=== PATIENT | female | born 1940 | race African-American/Black ===

== ENCOUNTER 2017-06-25 09:06 | Inpatient (IN) | payer OTHER ==
[2017-06-25] VITALS (12 sets, daily range): BP systolic 92–174; BP diastolic 46–94
[~2017-06-25] VITALS: Ht 165.1 cm; Wt 71.7 kg
[~2017-06-25 09:06] MED LIST: AMLO5TAB2 PO; ASPI81TA50 PO; GABA800T2 PO; HYDR-2762 PO; HYDR453.4 TP; METO25TA2 PO; PANT40TA5 PO; POLY17PO5 PO; SENN8.6C2 PO; SUCR1TAB35 PO; VIT1CAPS2 PO
--- NOTE | 2017-06-25 09:20 | EKG ---
[address] [address] Test Date: 2017-06-25 Test Time: 09:15:59 Pat Name: KASSANDRA ORDONEZ Department: Room: Gender: F Labeler: : 1940 Requested By: ORESTES REED Order Number: [id number] Reading MD: Shahzad Moreno MD Measurements Intervals [place] Rate: 93 P: 66 WY: 138 QRS: 53 QRSD: 120 T: 37 QT: 390 QTc: 488 Interpretive Statements SINUS RHYTHM Electronically Signed On 06-29-2017 16:33:13 CDT by Shahzad Moreno MD
--- NOTE | 2017-06-25 09:46 | PHYS DOC ---
Past History Past Medical History: Fibromyalgia, GERD, Hypertension Past Surgical History: Hysterectomy Alcohol Use: None Drug Use: None Adult General Chief Complaint Chief Complaint: NEURO SYMPTOMS/DEFICITS HPI HPI Patient is a 76 year old female who presents to the emergency department for evaluation of altered mental status. Family reports that approximately 8:15 AM the patient was last seen at her normal baseline. Patient's daughter states that at 8:30 AM she found the patient with contracted extremities and leaning toward her left side with what appeared to be her eyes rolling in the back of her head. Daughter states shortly after this episode the patient became very combative towards family. She called EMS who brought the patient to the emergency department for further evaluation. The patient has slurred speech and slow verbal responses but is following commands currently. Review of Systems Review of Systems Constitutional: Denies fever or chills [] Eyes: Denies change in visual acuity, redness, or eye pain [] HENT: Denies nasal congestion or sore throat [] Respiratory: Denies cough or shortness of breath [] Cardiovascular: Denies chest pain or edema [] GI: Denies abdominal pain, nausea, vomiting, bloody stools or diarrhea [] : Denies dysuria or hematuria [] Musculoskeletal: Denies back pain or joint pain [] Integument: Denies rash or skin lesions [] Neurologic: Right-sided weakness, facial droop, slurring speech[] All other systems were reviewed and found to be within normal limits, except as documented in this note. Allergies Allergies Allergies Coded Allergies Type Severity Reaction Last Updated Verified Iodine and Iodide Containing Produc Allergy Severe 10/30/14 Yes Penicillins Allergy Severe Hives 10/30/14 Yes lisinopril Allergy Severe Swelling 10/30/14 Yes azithromycin Allergy Intermediate 10/30/14 Yes meperidine Allergy Intermediate 10/30/14 Yes metoclopramide Allergy Intermediate 10/30/14 Yes nitrofurantoin Allergy Intermediate 10/30/14 Yes Physical Exam Physical Exam Constitutional: Alert, afebrile, follows commands, vital signs stable. [] HENT: Normocephalic, atraumatic, bilateral external ears normal, oropharynx moist, no oral exudates, nose normal. [] Eyes: PERRLA, EOMI, conjunctiva normal, no discharge. [] Neck: Normal range of motion, no tenderness, supple, no stridor. [] Cardiovascular:Heart rate regular rhythm, no murmur [] Lungs & Thorax: Bilateral breath sounds clear to auscultation [] Abdomen: Bowel sounds normal, soft, no tenderness, no masses, no pulsatile masses. [] Skin: Warm, dry, no erythema, no rash. [] Back: No tenderness, no CVA tenderness. [] Extremities: No tenderness, no cyanosis, no clubbing, ROM intact, no edema. [] Neurologic: Alert and oriented X 3, right-sided facial droop that is forehead sparing, speech slurred, biofuels production associate strength equal bilaterally, proximal upper extremity strength 5 out of 5 bilaterally, right lower extremity 4.5 out of 5 muscle strength, left lower extremity 5 out of 5 muscle strength, no sensory deficits, no ataxia. [] Current Patient Data Vital Signs Vital Signs Date Time Temp Pulse Resp B/P (MAP) Pulse Ox O2 Delivery O2 Flow Rate FiO2 06/25/17 09:07 98.2 93 32 90 Room Air Lab Results Laboratory Tests Test 06/25/17 09:22 06/25/17 10:02 06/25/17 10:17 White Blood Count 5.1 x10^3/uL Red Blood Count 4.59 x10^6/uL Hemoglobin 13.5 g/dL Hematocrit 39.8 % Mean Corpuscular Volume 87 fL Mean Corpuscular Hemoglobin 29 pg Mean Corpuscular Hemoglobin Concent 34 g/dL Red Cell Distribution Width 13.4 % Platelet Count 248 x10^3/uL Neutrophils (%) (Auto) 65 % Lymphocytes (%) (Auto) 21 % Monocytes (%) (Auto) 9 % Eosinophils (%) (Auto) 4 % Basophils (%) (Auto) 1 % Neutrophils # (Auto) 3.3 x10^3uL Lymphocytes # (Auto) 1.0 x10^3/uL Monocytes # (Auto) 0.5 x10^3/uL Eosinophils # (Auto) 0.2 x10^3/uL Basophils # (Auto) 0.1 x10^3/uL Prothrombin Time 10.6 SEC Prothromb Time International Ratio 1.0 Activated Partial Thromboplast Time 27 SEC Sodium Level 141 mmol/L Potassium Level 3.8 mmol/L Chloride Level 101 mmol/L Carbon Dioxide Level 26 mmol/L Anion Gap 14 Blood Urea Nitrogen 10 mg/dL Creatinine 0.9 mg/dL Estimated GFR (Cockcroft-Gault) 73.3 BUN/Creatinine Ratio 11 Glucose Level 101 mg/dL Calcium Level 9.4 mg/dL Magnesium Level 1.8 mg/dL Total Bilirubin 0.2 mg/dL Aspartate Amino Transf (AST/SGOT) 18 U/L Alanine Aminotransferase (ALT/SGPT) 15 U/L Alkaline Phosphatase 103 U/L Ammonia 13 mcmol/L Creatine Kinase 79 U/L Creatine Kinase MB (Mass) 0.5 ng/mL Creatine Kinase MB Relative Index 0.6 % Troponin I Quantitative < 0.017 ng/mL KQ-Vlq-M-Type Natriuretic Peptide 118 pg/mL Total Protein 7.3 g/dL Albumin 3.6 g/dL Albumin/Globulin Ratio 1.0 Lactic Acid Level 1.4 mmol/L Urine Collection Type U cath Urine Color Straw Urine Clarity Clear Urine pH 7.0 Urine Specific [place] 1.020 Urine Protein 30 mg/dl Urine Glucose (UA) Neg mg/dL Urine Ketones (Stick) Neg mg/dL Urine Blood Small Urine Nitrite Neg Urine Bilirubin Neg Urine Urobilinogen Dipstick 0.2 mg/dL Urine Leukocyte Esterase Neg Urine RBC 1-2 /HPF Urine WBC 0 /HPF Urine Squamous Epithelial Cells Occ /LPF Urine Transitional Epithelial Cells Occ /LPF Urine Bacteria 0 /HPF Urine Opiates Screen Neg Urine Methadone Screen Neg Urine Barbiturates Neg Urine Phencyclidine Screen Neg Urine Amphetamine/Methamphetamine Neg Urine Benzodiazepines Screen Neg Urine Cocaine Screen Neg Urine Cannabinoids Screen Pos Urine Ethyl Alcohol Neg Current Medications Medications (Trade) Dose Ordered Sig/Karolyn Route PRN Reason Start Time Stop Time Status Last Admin Dose Admin Aspirin (Joe Aspirin) 325 mg 1X ONCE PO 06/25/17 10:30 06/25/17 10:31 DC 06/25/17 10:33 Sodium Chloride 1,000 ml @ 125 mls/hr Q8H IV 06/25/17 10:38 06/26/17 10:37 EKG EKG Interpreted by me: Heart rate 93, sinus rhythm, incomplete right bundle branch block, no acute ST/T-wave abnormalities present[] Radiology/Procedures Radiology/Procedures [address] [address] IMAGING REPORT Signed PATIENT: KASSANDRA ORDONEZ ACCOUNT: [id number] : 1940 LOCATION: ER AGE: 76 SEX: F EXAM STATUS: REG ER ORD. PHYSICIAN: ORESTES REED MD REASON: altered mental status PROCEDURE: CT HEAD WO CONTRAST CT HEAD WO CONTRAST History: CODE STROKE, altered mental status Comparison: May 22, 2015 Technique: Noncontrast CT imaging was performed of the head. Exposure: One or more of the following individualized dose reduction techniques were utilized for this examination: 1. Automated exposure control 2. Adjustment of the mA and/or kV according to patient size 3. Use of iterative reconstruction technique. Findings: No acute intracranial hemorrhage is identified. There is a subtle focus of relative lower density left abraham axial image 11 not well-visualized on the previous exam. There are some other mild ill-defined low-density of the supratentorial parenchyma. Ventricular size is within normal limits. There is no intra-axial mass effect or midline shift. There is mild right frontal scalp soft tissue swelling/small hematoma. No acute calvarial abnormality is identified. Mastoid air cells are aerated. Impression: 1. No acute intracranial hemorrhage is identified. There is a small focus of relative lower density of the left abraham, cannot exclude more recent subacute ischemia. If there is concern for evolving or acute ischemia, followup CT or MRI could be beneficial. FOR INTERNAL CODING PURPOSES Critical result: Findings discussed with ORESTES REED at 06/25/2017 9:45 AM. RESULT CODE: (C) [] Course & Med Decision Making Course & Med Decision Making Pertinent Labs and Imaging studies reviewed. (See chart for details) The patient was activated as a code stroke at 0920. I initially called Dr. Smiley, patient's primary doctor, to confirm that to his knowledge the patient has had no prior issues with facial droop. I spoke with Dr. Monae at 0930. Initial NIH score was 6. Patient has noted history of GI bleeding and had a prior GI bleed approximately one year ago per family. Patient also has findings in the left abraham on CT signaling possible subacute infarct. Given these findings, Dr. Monae did not feel patient was a candidate for TPA therapy. I spoke with the family regarding risks and benefits of TPA therapy and they also agreed to withhold use of TPA in this patient due to potential for bleeding risk. Both Dr. Monae and Dr. Smiley feel that the patient is appropriate for admission here at [facility]. I spoke with the patient and the patient's family regarding this and they agreed to have patient stay for further evaluation and treatment. Nursing NIH score was 8 as patient now having symmetric weakness in bilateral upper and lower extremities. Focal neuro weakness may be a sign of Ba's paralysis secondary to seizure episode. Dr. Monae recommended the patient be started on aspirin at this time though he is aware of the patient's prior history of GI bleed. This was started in the emergency department. Patient was admitted for further care. Critical care time excluding procedures: 35 minutes. Dragon Disclaimer Dragon Disclaimer This electronic medical record was generated, in whole or in part, using a voice recognition dictation system. Departure Departure: Impression: Primary Impression: Altered mental status Additional Impressions: Facial droop History of GI bleed Disposition: ADMITTED INPATIENT Admitting Physician: Mariusz Smiley Condition: GUARDED Referrals: MARIUSZ SMILEY MD (PCP) Problem Qualifiers Primary Impression: Altered mental status Altered mental status type: disorientation Qualified Codes: R41.0 - Disorientation, unspecified ORESTES REED MD Jun 25, 2017 09:46
[2017-06-25 09:51] LABS: BASO # 0.1 x10^3/uL (0.0-0.2); BASO % 1 % (0-3); EOS # 0.2 x10^3/uL (0.0-0.7); EOS % 4 % (0-3); HEMATOCRIT 39.8 % (36.0-47.0); HEMOGLOBIN 13.5 g/dL (12.0-15.5); LYMPH % 21 % (24-48); MEAN CORPUSCULAR HEMOGLOBIN 29 pg (25-35); MEAN CORPUSCULAR HGB CONC 34 g/dL (31-37); MEAN CORPUSCULAR VOLUME 87 fL (79-100); MONO # 0.5 x10^3/uL (0.0-1.1); MONO % 9 % (0-9); NEUT # 3.3 x10^3uL (1.8-7.7); NEUT % 65 % (31-73); PLATELET COUNT 248 x10^3/uL (140-400); RED BLOOD COUNT 4.59 x10^6/uL (3.50-5.40); RED CELL DISTRIBUTION WIDTH 13.4 % (11.5-14.5); WHITE BLOOD COUNT 5.1 x10^3/uL (4.0-11.0)
--- NOTE | 2017-06-25 09:57 | RAD ---
CT HEAD WO CONTRAST History: CODE STROKE, altered mental status Comparison: May 22, 2015 Technique: Noncontrast CT imaging was performed of the head. Exposure: One or more of the following individualized dose reduction techniques were utilized for this examination: 1. Automated exposure control 2. Adjustment of the mA and/or kV according to patient size 3. Use of iterative reconstruction technique. Findings: No acute intracranial hemorrhage is identified. There is a subtle focus of relative lower density left abraham axial image 11 not well-visualized on the previous exam. There are some other mild ill-defined low-density of the supratentorial parenchyma. Ventricular size is within normal limits. There is no intra-axial mass effect or midline shift. There is mild right frontal scalp soft tissue swelling/small hematoma. No acute calvarial abnormality is identified. Mastoid air cells are aerated. Impression: 1. No acute intracranial hemorrhage is identified. There is a small focus of relative lower density of the left abraham, cannot exclude more recent subacute ischemia. If there is concern for evolving or acute ischemia, followup CT or MRI could be beneficial. FOR INTERNAL CODING PURPOSES Critical result: Findings discussed with ORESTES REED at 06/25/2017 9:45 AM. RESULT CODE: (C) Electronically signed by: Abdirahman Talley MD (06/25/2017 9:54 AM) [email or web address]
--- NOTE | 2017-06-25 09:59 | RAD ---
PORTABLE CHEST 1V History: Altered mental status Comparison: April 04, 2015 Findings: Single view of the chest is submitted. There is no infiltrate, pneumothorax, or effusion. The pericardial cardiac silhouette is within normal limits in size. Impression: 1. There is no radiographic evidence of acute cardiopulmonary disease. Electronically signed by: Abdirahman Talley MD (06/25/2017 9:56 AM) [id number]
[2017-06-25 10:06] LABS: ALBUMIN 3.6 g/dL (3.4-5.0); CALCIUM 9.4 mg/dL (8.5-10.1); CREATININE 0.9 mg/dL (0.6-1.0); GFR 73.3; MAGNESIUM 1.8 mg/dL (1.8-2.4); POTASSIUM 3.8 mmol/L (3.5-5.1); TOTAL BILIRUBIN 0.2 mg/dL (0.2-1.0); TOTAL PROTEIN 7.3 g/dL (6.4-8.2)
[2017-06-25] MEDS ORDERED: ASPIRIN 325 MG TABLET PO ONE (10:30)
[2017-06-25 10:45] LABS: BACTERIA,URINE 0 /HPF (0-FEW); BILIRUBIN,URINE NEG (NEG); CLARITY,URINE CLEAR; COLOR,URINE STRAW; GLUCOSE,URINE NEG (NEG); NITRITE,URINE NEG (NEG); SQUAMOUS EPITHELIAL CELL,UR OCC /LPF; UROBILINOGEN,URINE 0.2 mg/dL (0.2 mg/dL); WBC,URINE 0 /HPF (0-4)
[2017-06-25] MEDS ORDERED: ONDANSETRON PF 4 MG/2 ML VIAL. IV PRN (10:45)
[2017-06-25 10:48] LABS: AMPHETAMINE/METHAMPHETAMINE NEG (NEG); BARBITURATES NEG (NEG); BENZODIAZEPINES NEG (NEG); CANNABINOIDS POS (NEG); COCAINE NEG (NEG); METHADONE NEG (NEG); OPIATES NEG (NEG); PHENCYCLIDINE NEG (NEG)
[2017-06-25] MEDS ORDERED: LUBI8CAP4 PO (11:49)
[2017-06-25] MEDS: IV NORMAL SALINE 1,000ML 1,000 ML IV SCH ×2 (12:27→18:14)
[2017-06-25] MEDS ORDERED: SENNOSIDES 8.6 MG TABLET PO PRN (13:00)
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
[2017-06-25] MEDS: amLODIPine BESYLATE 5 MG TABLET PO SCH (15:31)
[2017-06-25] MEDS: METOPROLOL SUCC 24HR ER 25 MG TAB.ER.24H. PO SCH (15:31)
--- NOTE | 2017-06-25 15:38 | CARD ---
MR#: [id number] Date of Study: 06/25/2017 Ordering Physician: JOSE A GUZMÁN, Referring Physician: JOSE A GUZMÁN Tech: Darlin Kent RDCS APPROVED REPORT EXAM: Two-dimensional and M-mode echocardiogram with Doppler and color Doppler. Other Information Quality : Good INDICATION CVA/TIA 2D DIMENSIONS RVDd1.6 (2.9-3.5cm)Left Atrium(2D)2.4 (1.6-4.0cm) IVSd1.1 (0.7-1.1cm)Aortic Root(2D)2.8 (2.0-3.7cm) LVDd4.4 (3.9-5.9cm)LVOT Diameter1.9 (1.8-2.4cm) PWd1.1 (0.7-1.1cm)LVDs2.3 (2.5-4.0cm) FS (%) 30.0 %LVEF(%)60.0 (>50%) Aortic Valve AoV Peak Terry.206.7cm/sAoV VTI43.5cm AO Peak GR.17.1mmHgLVOT Peak Terry.146.7cm/s LVOT VTI 27.52cmAO Mean GR.8mmHg MOLINA (VMAX)2.84zz7PTQ (VTI)1.80cm2 AI P 1/2 Xuup529rf Mitral Valve MV E Afzwmhht112.5cm/sMV DECEL OUYE475ro MV A Gqxjozxk662.9cm/sE/A Ratio0.7 Tricuspid Valve TR P. Hkzwutze754xm/sRAP CANTHYZU1rbYp TR Peak Gr.58cxJqSICA74iuSi LEFT VENTRICLE The left ventricle is normal size. There is normal left ventricular wall thickness. The left ventricu lar systolic function is normal. The Ejection Fraction is 60-65%. There is normal LV segmental wall m otion. Transmitral Doppler flow pattern is Grade I-abnormal relaxation pattern. RIGHT VENTRICLE The right ventricle is normal size. The right ventricular systolic function is normal. ATRIA The left atrium size is normal. The right atrium size is normal. The interatrial septum is intact wit h no evidence for an atrial septal defect or patent foramen ovale as noted on 2-D or Doppler imaging. AORTIC VALVE The aortic valve is calcified and displays decreased opening. Doppler and Color Flow revealed mild to moderate aortic regurgitation. There is no significant aortic valvular stenosis. MITRAL VALVE The mitral valve is calcified but opens well. Mitral annular calcification is moderate. There is no e vidence of mitral valve prolapse. There is no mitral valve stenosis. Doppler and Color-flow revealed trace to mild mitral regurgitation. TRICUSPID VALVE The tricuspid valve is normal in structure and function. Doppler and Color Flow revealed trace tricus pid regurgitation. There is mild pulmonary hypertension. The PA pressure was estimated at 33 mmHg. Th ere is no tricuspid valve stenosis. PULMONIC VALVE The pulmonic valve is not well visualized. Doppler and Color Flow revealed trace pulmonic valvular re gurgitation. There is no pulmonic valvular stenosis. GREAT VESSELS The aortic root is normal in size. The ascending aorta is normal in size. The IVC is normal in size a nd collapses >50% with inspiration. PERICARDIAL EFFUSION There is no evidence of significant pericardial effusion. Critical Notification Critical Value: No <Conclusion> The left ventricular systolic function is normal. The Ejection Fraction is 60-65%. There is normal LV segmental wall motion. Transmitral Doppler flow pattern is Grade I-abnormal relaxation pattern. Mild to moderate aortic regurgitation. Trace to mild mitral regurgitation. Trace tricuspid regurgitation. The PA pressure was estimated at 33 mmHg. There is no evidence of significant pericardial effusion. Signed by : Sadiq Aguilar, Electronically Approved : 06/25/2017 15:38:11
--- NOTE | 2017-06-25 19:06 | RAD ---
Bilateral carotid Doppler ultrasound 06/25/2017 Clinical indication: Stroke Comparison: None Findings: Multiple grayscale, color, and duplex spectral analysis waveform sonographic images were acquired of the carotid, subclavian, and vertebral arteries. Velocities used to determine stenosis are known to correlate with NASCET angiographic criteria. Right carotid: Mid common carotid PSV: 81 cm/s Mid internal carotid PSV: 122 cm/s Mid internal carotid EDV: 25 cm/s External carotid PSV: 78 cm/s ICA/CCA ratio: 1.5 Left carotid: Mid common carotid PSV: 56 in meters per 2nd Mid internal carotid PSV: 72 cm/s Mid internal carotid EDV: 21 cm/s External carotid PSV: 164 cm/s ICA/CCA ratio: 1.3. Visualized portions of the right and left vertebral arteries are patent with antegrade flow. There is mild bilateral calcified plaque at the carotid bulbs without high-grade visualized narrowing. Impression: No visual or spectral analysis evidence of hemodynamically significant stenosis. Electronically signed by: Jules Collazo MD (06/25/2017 7:04 PM) [facility]
[2017-06-25] MEDS: LUBIPROSTONE PO SCH (21:00)
[2017-06-26] VITALS (9 sets, daily range): BP systolic 132–166; BP diastolic 59–94
[2017-06-26] MEDS: IV NORMAL SALINE 1,000ML 1,000 ML IV SCH (04:27)
[2017-06-26 06:11] LABS: BASO # 0.1 x10^3/uL (0.0-0.2); BASO % 1 % (0-3); EOS # 0.2 x10^3/uL (0.0-0.7); EOS % 3 % (0-3); HEMATOCRIT 35.7 % (36.0-47.0); HEMOGLOBIN 12.1 g/dL (12.0-15.5); LYMPH # 0.7 x10^3/uL (1.0-4.8); LYMPH % 14 % (24-48); MEAN CORPUSCULAR HEMOGLOBIN 30 pg (25-35); MEAN CORPUSCULAR HGB CONC 34 g/dL (31-37); MEAN CORPUSCULAR VOLUME 87 fL (79-100); MONO # 0.5 x10^3/uL (0.0-1.1); MONO % 9 % (0-9); NEUT # 3.9 x10^3uL (1.8-7.7); NEUT % 73 % (31-73); PLATELET COUNT 207 x10^3/uL (140-400); RED CELL DISTRIBUTION WIDTH 13.8 % (11.5-14.5); WHITE BLOOD COUNT 5.3 x10^3/uL (4.0-11.0)
[2017-06-26 06:21] LABS: CALCIUM 8.4 mg/dL (8.5-10.1); CREATININE 0.7 mg/dL (0.6-1.0); GFR 97.9; POTASSIUM 3.4 mmol/L (3.5-5.1)
[2017-06-26] MEDS: amLODIPine BESYLATE 5 MG TABLET PO SCH (08:47)
[2017-06-26] MEDS: METOPROLOL SUCC 24HR ER 25 MG TAB.ER.24H. PO SCH (08:47)
[2017-06-26] MEDS ORDERED: amLODIPine BESYLATE 5 MG TABLET PO SCH (09:00)
[2017-06-26] MEDS ORDERED: METOPROLOL SUCC 24HR ER 25 MG TAB.ER.24H. PO SCH (09:00)
[2017-06-26] MEDS ORDERED: PANTOPRAZOLE 40 MG TABLET. PO SCH (09:00)
--- NOTE | 2017-06-26 09:53 | CONS ---
DATE OF CONSULTATION: 06/26/2017 NEUROLOGIC CONSULTATION REFERRING PHYSICIAN: Dr. Armen Jeffries. REASON FOR CONSULTATION: Weakness of the lower extremities. HISTORY OF PRESENT ILLNESS: This is a 76-year-old pleasant right-handed -Niuean female who was admitted through Emergency Room after she presented with chief complaints of slowly progressive weakness of the lower extremities, more prominent on the left side of one month duration. The symptoms started with mental status changes, but when she arrived to Emergency Room, she was alert and oriented. According to family members, the patient had episode of being combative and aggressive towards the family. It was reported she had some slurred speech and difficulty to respond to verbal commands. She denies headaches, visual disturbances, nausea, vomiting, chest pain, shortness of breath or palpitation, dysphagia or vertigo. Initial nonenhanced head CT scan revealed no evidence of acute intracranial process as a bleed, but showed a low density in the left abraham, represents old ischemic change. The patient also complains of chronic lower back pain. She relates that lower back pain is due to irritable bowel syndrome. PAST MEDICAL HISTORY: Significant for Irritable bowel syndrome, hypothyroidism, constipation. PAST SURGICAL HISTORY: Significant for thyroidectomy, cholecystectomy, cataract extractions, appendectomy, and hysterectomy. SOCIAL HISTORY: The patient denies smoking cigarettes, but she smoked marijuana and she drinks alcohol occasionally. She works as a volunteer at school. FAMILY HISTORY: She has 7 children, otherwise unremarkable. REVIEW OF SYSTEMS: A 10-point review of system was performed as mentioned above in history of present illness, otherwise unremarkable. MEDICATIONS: Pantoprazole 40 mg daily, metoprolol 25 mg daily, amlodipine 5 mg p.o. daily. ALLERGIES: IODINE CONTAINING PRODUCTS, PENICILLIN, AZITHROMYCIN, LISINOPRIL, MEPERIDINE, METOCLOPRAMIDE and NITROFURANTOIN. PHYSICAL EXAMINATION: GENERAL: Well-developed, well-nourished -Niuean female, not in acute distress. She weighs 158 pounds. VITAL SIGNS: Blood pressure 143/61, respiratory rate 16, pulse is 64 and regular, temperature is 98, oxygen saturation is 93% on room air. HEENT: Normocephalic, atraumatic, otherwise unremarkable. NECK: Supple. Negative for carotid bruit, lymphadenopathy or thyromegaly. LUNGS: Clear to A and P. CARDIOVASCULAR: Regular rate and rhythm, normal S1, S2. There is no S3, S4 or murmur. ABDOMEN: Soft. Bowel sounds positive. EXTREMITIES: Negative for cyanosis, clubbing, pitting edema. NEUROLOGIC: Mental status: The patient is alert and oriented x 3. The speech is fluent. There is no language dysfunction. Memory, judgment, and abstract thinkings are normal. The patient denies hallucination or delusion. Cranial nerves: Visual manuel are full. The pupils are reactive to light and accommodation. The extraocular movements are intact. There is no nystagmus. There is no facial motor or sensory deficit. Hearing is intact bilaterally. The palate is elevated symmetrically. Sternocleidomastoid muscles are powerful bilaterally. The patient shrugs her shoulders symmetrically, protrudes her tongue in the midline without fasciculation or atrophy. Motor: No focal muscle bulk was seen. The tone is normal. The strength is 4/5 in the left upper extremity. Strength also was 5/5 throughout. Sensory examination revealed normal pinprick, light touch, vibratory and position senses. Deep tendon reflexes were symmetric and active without pathology responses. Gait and coordination are normal. DIAGNOSTIC DATA: Carotid Doppler study performed on performed on 06/25/2017 revealed no evidence of significant stenosis. Echocardiogram performed on 06/25/201707/2017 revealed a normal left ventricular systolic function with ejection fraction of 60-65%, otherwise unremarkable. IMPRESSION: 1. Questionable transient ischemic attack, resolved. 2. Chronic bilateral knee pain and weakness of the lower extremities, probably due to underlying degenerative joint disease. 3. Hypothyroidism and hypertension. RECOMMENDATIONS: 1. The patient was started on aspirin 325 mg p.o. daily and continue with current home medication, physical therapy evaluation and treatment. 2. Continue with current management initiated by Dr. Jeffries and treat the underlying chronic abdominal pain. M Justin RODRIGUEZ MD DR: MATEUSZ/sonia JOB#: [id number] / [id number]
[2017-06-26] MEDS: LUBIPROSTONE PO SCH (10:54)
[2017-06-26] MEDS ORDERED: ASPI-612 PO (14:17)
[2017-06-26] MEDS ORDERED: POTASSIUM CHLORIDE 20 MEQ TABLET.ER. PO ONE ×2 (14:30)
--- NOTE | 2017-06-26 19:48 | DS ---
DATE OF DISCHARGE: 06/26/2017 HOSPITAL COURSE: The patient is a 76-year-old female patient who came to the Emergency Room with slurring of speech, altered mental status, that has resolved at the time she arrived to the Emergency Room. According to family member, the patient had episodes of being combative and aggressive towards the family and some slurring speech and difficult respond to verbal command. CT scan ____ nonenhanced showed no evidence of intracranial process as a bleed, but showed low density in the left abraham, representing old ischemic change. The patient remained hemodynamically stable. She was able to eat and drink without difficulty and been up and about. She was seen by Dr. Monae, who thinks that she has probably had a transient ischemic attack, is almost resolved, and recommended an aspirin. The patient is most complains about her abdominal pain as she is known to have irritable bowel syndrome, but refused to allow us to do a CT scan of the abdomen and pelvis, and said that she has multiple CT scans, none of them showed any abnormality, and she is ready to go home. PHYSICAL EXAMINATION: GENERAL: When I saw her this afternoon, she looked well and was clearly in no apparent respiratory distress. ____ pale. No jaundice, cyanosis or thyromegaly. No jugular venous distention. No limb edema. VITAL SIGNS: Her heart rate was 73, blood pressure was 161/88, temperature was 98, respiratory rate was 16, and oxygen saturation was 98% on room air. HEAD, EYES, EARS, NOSE AND THROAT: Showed normocephalic, atraumatic. NECK: Supple. HEART: Showed normal first and second heart sounds with no gallop, rub or murmur. CHEST: Clear to auscultation. No crepitation or rhonchi. ABDOMEN: Distended, soft, nontender. No guarding or rigidity. No organomegaly. All hernial orifice intact. Bowel sounds normal. NEUROLOGIC: She is awake, alert, responding appropriately. All her cranial nerves are intact. She moves extremities without difficulty. She ambulates without assistance or assistive devices. Her intake over the last 24 hours was 3530. Output was 1250. LABORATORY DATA: As of this morning showed a serum sodium 142, potassium 3.4. Her chloride 107, bicarbonate 28, anion gap of 7, BUN 7, creatinine 0.7, estimated GFR was 98 mL per minute. Her glucose was 86, calcium was 8.4. Her serum triglycerides were 77, total cholesterol was 153, LDL was 77, VLDL 15, HDL cholesterol 61 and cholesterol to HDL cholesterol ratio was 2. Her white cell count was 5300, hemoglobin 12, hematocrit 36, MCV 87 and platelet count 207,000. Her coagulation tests were normal. She did have a carotid Doppler ultrasound showed that there is no visual spectral analysis evidence of hemodynamically significant stenosis. Her echocardiogram showed that the left ventricular systolic function is normal, ejection fraction of 60%-65%. There is normal left ventricular segmental wall motion, transmitral Doppler flow pattern is grade 1, abnormal relaxation pattern, mild to moderate aortic regurgitation, trace to mild mitral regurgitation, trace tricuspid regurgitation. Pulmonary artery pressure was estimated at 33 mmHg. There is no evidence of significant pericardial effusion. DISCHARGE MEDICATIONS: The patient was discharged back home to continue on her home medication that included metoprolol succinate 25 mg once a day, amlodipine 5 mg once a day, aspirin 81 mg once a day, Amitiza 8 mcg twice a day, senna 1 tablet daily and Protonix 40 mg daily. FINAL DISCHARGE DIAGNOSES: Transient ischemic attack, has resolved. Hypertension, chronic constipation, irritable bowel syndrome, hypothyroidism. JOSE A GUZMÁN MD DR: SUDHEER/sonia JOB#: [id number] / [id number]
== END 2017-06-26 14:40 | disposition home health service (06) | DRG 69 ==
LOC: ER 09:06 → ICU 10:42
PROVIDERS: ADMIT Internal Medicine; ATTEND Internal Medicine
DX: G45.9 Transient cerebral ischemic attack, unspecified (principal); E89.0 Postprocedural hypothyroidism; I10 Essential (primary) hypertension; K58.9 Irritable bowel syndrome, unspecified; K59.09 Other constipation; K21.9 Gastro-esophageal reflux disease without esophagitis; M79.7 Fibromyalgia; Z96.1 Presence of intraocular lens; F17.210 Nicotine dependence, cigarettes, uncomplicated; G89.29 Other chronic pain; M25.561 Pain in right knee; M25.562 Pain in left knee; Z90.710 Acquired absence of both cervix and uterus; Z88.0 Allergy status to penicillin; Z88.1 Allergy status to other antibiotic agents; Z88.8 Allergy status to other drugs, medicaments and biological substances; Z98.42 Cataract extraction status, left eye; Z98.41 Cataract extraction status, right eye; Z90.49 Acquired absence of other specified parts of digestive tract
CPT/HCPCS: 36415; 51701; 70450; 71045; 80048; 80053; 80061; 80307; 81001; 82140; 82553; 83605; 83735; 83880; 84484; 85025; 85610; 85730; 87040; 87641; 93005; 93306; 93880; J3010; 92610; 97530; 99291-25; G0479; J7030

== ENCOUNTER → 2017-07-06 | Outpatient (CLI) | payer OTHER ==
[2017-06-26 10:57] VITALS: BP 161/88
[~2017-07-06] MED LIST changes: +ASPI-612 PO; +BARIUM SULFATE 60% 355 ML SUSP PO ONE; +LUBI8CAP4 PO
--- NOTE | 2017-07-06 13:48 | RAD ---
SMALL BOWEL SERIES History: Generalized abdominal pain Comparison: None. Findings: Rubber Compounder Formulator radiograph demonstrates nonobstructive bowel gas pattern. Left renal calculi are not excluded. There are also calcific opacity in the right superior pelvic region and inferior left abdominal region of uncertain AP location. Ureteral calculi would be difficult to exclude although larger foci on the right less likely to be in the ureter. Overall caliber of the small bowel is within normal limits. No discrete abnormality was identified of the terminal ileum. Contrast was seen in the proximal colon at about 105 minutes. Fluoroscopy time: 1.3 minutes, 30 fluoroscopic images Impression: 1. No significant small bowel abnormality was identified. 2. Left renal calculi are not excluded. There are also some calcific opacities in the right superior pelvis and left inferior abdominal region of uncertain AP location. Electronically signed by: Abdirahman Talley MD (07/06/2017 1:45 PM) [id number]
== END | disposition home or self-care (01) ==
LOC: RAD 08:12
PROVIDERS: ATTEND Internal Medicine Gastroenterology
DX: R10.84 Generalized abdominal pain (principal); I10 Essential (primary) hypertension; E03.9 Hypothyroidism, unspecified; Z87.440 Personal history of urinary (tract) infections
CPT/HCPCS: 74250

== ENCOUNTER 2018-01-07 11:46 | Emergency (ER) | payer MEDICARE, OTHER ==
[~2018-01-07 11:46] MED LIST changes: +ACET-704 PO; -AMLO5TAB2 PO; +AMLO5TAB7 PO; -BARIUM SULFATE 60% 355 ML SUSP PO ONE; +CIPR250T30 PO; +TRAM-48 PO
--- NOTE | 2018-01-07 12:16 | PHYS DOC ---
Past History Past Medical History: Hypertension, Other Past Surgical History: Appendectomy, Hysterectomy, Other Additional Past Surgical Histo: thyroid surgery Smoking: Cigarettes Alcohol Use: None Drug Use: Marijuana Adult General Chief Complaint Chief Complaint: SEIZURE HPI HPI 77-year-old female presents emergency department after having a episode today where she lost consciousness and was shaking with both of her upper extremities in a rhythmic fashion. There is no biting of the time or urinary incontinence. Her daughter who is here with her today explains that she's had more of these episodes over the past year. She counts 5 of these episodes. No official diagnosis has been made. EMS was called. They were at a local grocery store when this occurred. This was a witnessed event that occurred approximately within 45 minutes. After the event the patient had a postictal period of confusion and was waking up upon arrival. 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 Forwarded from Dr. Jeffries previously this year: I have verified this hx as well. "PAST MEDICAL HISTORY: Significant for hypertension, seems to have chronic constipation and irritable bowel syndrome according to her. She has also hypothyroidism, although she is not on any thyroid medicine. PAST SURGICAL HISTORY: Significant for bilateral cataract extractions and intraocular lens implant, thyroidectomy. She has had cholecystectomy, appendectomy, and hysterectomy. FAMILY HISTORY: She has 1 younger sister in her 40s committing suicide. She has no brothers. She has 7 children, 4 boys and 3 girls. One of her daughters was stabbed to here in [place] and 1 of her sons was beaten to in [place] according to her. SOCIAL HISTORY: She is retired and now volunteers at school. She continues to smoke, does drink red wine occasionally, and apparently uses cannabinoid." Review of systems is negative for chest pain shortness of breath abdominal pain fevers chills. On arrival she does not have weakness numbness of the upper or lower extremities. She does not have facial asymmetry. All other review of systems is negative unless otherwise noted in history of present illness. ED course: 77-year-old female presenting with an episode of seizure versus syncope. Given the historical content sounds more suggestive of seizure activity. On arrival the patient was waking up and more clear in her thought process. She is afebrile with a normal heart rate. On examination she has a normal neurologic exam. Regular rate and rhythm. Abdomen is soft and nontender. No signs of head trauma to the head or neck. Head CT and blood work along with urinalysis and EKG obtained. Workup thus far unremarkable. I spoke with our neurologist Dr. ortega at [facility] who agrees the patient reports an MRI of the brain to further evaluate the patient's symptoms. I spoke with Dr. Andrade accepted the patient to [facility] for admission. The patient also had a CT of the abdomen pelvis because she was complaining of epigastric abdominal pain after passing out. No acute findings on CT. Limited by lack of contrast. Patient is allergic to IV contrast. Impression: Seizure versus syncope versus TIA. Review of Systems Review of Systems SEE ABOVE. Allergies Allergies Allergies Coded Allergies Type Severity Reaction Last Updated Verified Iodine and Iodide Containing Produc Allergy Severe 06/25/17 Yes Penicillins Allergy Severe Hives 06/25/17 Yes lisinopril Allergy Severe Swelling 06/25/17 Yes azithromycin Allergy Intermediate 06/25/17 Yes meperidine Allergy Intermediate 06/25/17 Yes metoclopramide Allergy Intermediate 06/25/17 Yes nitrofurantoin Allergy Intermediate 06/25/17 Yes Physical Exam Physical Exam SEE ABOVE Constitutional: Well developed, well nourished, no acute distress, non-toxic appearance. [] HENT: Normocephalic, atraumatic, bilateral external ears normal, oropharynx moist, no oral exudates, nose normal. [] Eyes: PERRLA, EOMI, conjunctiva normal, no discharge. [] Neck: Normal range of motion, no tenderness, supple, no stridor. [] Cardiovascular:Heart rate regular rhythm, no murmur [] Lungs & Thorax: Bilateral breath sounds clear to auscultation [] Abdomen: Bowel sounds normal, soft, no tenderness, no masses, no pulsatile masses. [] Skin: Warm, dry, no erythema, no rash. [] Back: No tenderness, no CVA tenderness. [] Extremities: No tenderness, no cyanosis, no clubbing, ROM intact, no edema. [] Mental status: Awake oriented and alert x3 Cranial nerves: Extraocular movements intact, eyebrows tammie bilaterally, smile symmetric, uvula elevation nl, shoulder shrug intact bilaterally, tongue protrusion normal DTRs: 2+ Sensation: equal and normal in all extremities Strength: 5/5 in upper and lower extremities bilaterally Psychologic: Affect normal, judgement normal, mood normal. [] EKG EKG [] Radiology/Procedures Radiology/Procedures [] Course & Med Decision Making Course & Med Decision Making Pertinent Labs and Imaging studies reviewed. (See chart for details) [] Dragon Disclaimer Dragon Disclaimer This electronic medical record was generated, in whole or in part, using a voice recognition dictation system. Departure Departure: Disposition: XFER SHT-TRM HOSP ([facility] [place]) Condition: STABLE Referrals: SALVADOR BRAY DO (PCP) BAL BARKLEY MD Jan 07, 2018 12:16
--- NOTE | 2018-01-07 12:27 | RAD ---
CT HEAD INDICATION: CHANGE IN MENTAL STATUS COMPARISON: 05/22/2015 Exposure: One or more of the following individualized dose reduction techniques were utilized for this examination: 1. Automated exposure control 2. Adjustment of the mA and/or kV according to patient size 3. Use of iterative reconstruction technique TECHNIQUE: 5 mm contiguous axial images were obtained from the skull base to the vertex in both bone and soft tissue algorithm. FINDINGS: Mild bilateral periventricular white matter hypodensities likely chronic small vessel ischemic disease. No evidence of acute intracranial hemorrhage. No extra-axial fluid collections. No mass effect or midline shift. Ventricular size is appropriate. Basal cisterns are patent. No fractures identified.Guzman-white differentiation is preserved.Globes and orbits are within normal limits. Paranasal sinuses and mastoid air cells are clear. IMPRESSION: No acute intracranial findings. Electronically signed by: Giuseppe Hays MD (01/07/2018 12:24 PM) [id number]
[2018-01-07 12:35] LABS: BASO # 0.1 x10^3/uL (0.0-0.2); BASO % 1 % (0-3); EOS # 0.1 x10^3/uL (0.0-0.7); EOS % 2 % (0-3); HEMATOCRIT 40.8 % (36.0-47.0); HEMOGLOBIN 13.7 g/dL (12.0-15.5); LYMPH # 0.7 x10^3/uL (1.0-4.8); LYMPH % 10 % (24-48); MEAN CORPUSCULAR HEMOGLOBIN 30 pg (25-35); MEAN CORPUSCULAR HGB CONC 34 g/dL (31-37); MEAN CORPUSCULAR VOLUME 88 fL (79-100); MONO # 0.5 x10^3/uL (0.0-1.1); MONO % 8 % (0-9); NEUT # 5.1 x10^3uL (1.8-7.7); NEUT % 79 % (31-73); PLATELET COUNT 267 x10^3/uL (140-400); RED BLOOD COUNT 4.63 x10^6/uL (3.50-5.40); RED CELL DISTRIBUTION WIDTH 13.4 % (11.5-14.5); WHITE BLOOD COUNT 6.5 x10^3/uL (4.0-11.0)
--- NOTE | 2018-01-07 12:35 | RAD ---
EXAM: CHEST 1 VIEW History: Seizure COMPARISON: 06/25/2017 TECHNIQUE: Single portable radiograph of the chest FINDINGS: The cardiac silhouette is unremarkable. The lungs are clear bilaterally. The costophrenic sulci are clear and well demarcated. IMPRESSION: No radiographic evidence of an acute cardiopulmonary process. Electronically signed by: Giuseppe Hays MD (01/07/2018 12:32 PM) [id number]
[2018-01-07 12:52] LABS: ALBUMIN 3.4 g/dL (3.4-5.0); CALCIUM 9.3 mg/dL (8.5-10.1); CREATININE 0.9 mg/dL (0.6-1.0); DIRECT BILIRUBIN 0.1 mg/dL (0.0-0.2); GFR 73.1; POTASSIUM 3.7 mmol/L (3.5-5.1); TOTAL BILIRUBIN 0.3 mg/dL (0.2-1.0); TOTAL PROTEIN 7.6 g/dL (6.4-8.2)
[2018-01-07 13:29] LABS: AMPHETAMINE/METHAMPHETAMINE NEG (NEG); BARBITURATES NEG (NEG); BENZODIAZEPINES NEG (NEG); CANNABINOIDS POS (NEG); COCAINE NEG (NEG); METHADONE NEG (NEG); OPIATES NEG (NEG); PHENCYCLIDINE NEG (NEG)
[2018-01-07 13:35] LABS: BACTERIA,URINE MOD /HPF (0-FEW); BILIRUBIN,URINE NEG (NEG); CLARITY,URINE HAZY; COLOR,URINE YELLOW; GLUCOSE,URINE NEG (NEG); HYALINE CASTS, URINE OCC /HPF; NITRITE,URINE NEG (NEG); SQUAMOUS EPITHELIAL CELL,UR FEW /LPF; UROBILINOGEN,URINE 0.2 mg/dL (0.2 mg/dL)
--- NOTE | 2018-01-07 13:44 | RAD ---
Examination: CT of the abdomen pelvis without contrast HISTORY: History of abdominal pain COMPARISON: 11/27/2017 TECHNIQUE: Axial CT images of the abdomen pelvis were performed without contrast. Coronal and sagittal reformats are performed Exposure: One or more of the following individualized dose reduction techniques were utilized for this examination: 1. Automated exposure control 2. Adjustment of the mA and/or kV according to patient size 3. Use of iterative reconstruction technique FINDINGS: The bibasilar lungs are clear. No evidence of free air identified in the abdomen. The evaluation of the solid organs is limited due to lack of IV contrast. The evaluation of bowel is limited due to lack of oral contrast. The visualized noncontrasted liver, spleen, adrenals grossly appears unremarkable. The gallbladder is mildly distended. The stomach is mildly distended. The visualized pancreas grossly appears unremarkable. The small bowel is nondilated. Feces and gas noted in the colon. Few sigmoid colon diverticulosis identified. The appendix is not clearly identified. The urinary bladder is mildly distended. No evidence of intrarenal collecting system calculi or hydronephrosis. Moderate degenerative changes lumbar spine. Severe aortic atherosclerosis. Severe atherosclerotic calcifications identified in the bilateral proximal renal arteries. IMPRESSION: 1. No acute intra-abdominal findings. 2. Sigmoid colon diverticulosis. Electronically signed by: Giuseppe Hays MD (01/07/2018 1:41 PM) [id number]
--- NOTE | 2018-01-07 13:54 | EKG ---
[address] [address] Test Date: 2018-01-07 Test Time: 12:27:31 Pat Name: KASSANDRA ORDONEZ Department: Room: Gender: F Door Operator: : 1940 Requested By: BAL BARKLEY Order Number: [id number] Reading MD: Shahzad Moreno MD Measurements Intervals Basalt Rate: 101 P: 70 MT: 132 QRS: 67 QRSD: 110 T: 49 QT: 374 QTc: 486 Interpretive Statements SINUS TACHYCARDIA PAC'S CANNOT RULE OUT PRIOR SEPTAL INFARCT Electronically Signed On 01-09-2018 13:42:36 CDT by Shahzad Moreno MD
[2018-01-07] MEDS ORDERED: LABETALOL 20 MG/4 ML DISP.SYRIN. IVP ONE (14:15)
[2018-01-07 15:20] VITALS: BP 154/83
== END 2018-01-07 14:25 | disposition short-term general hospital (02) ==
LOC: ER 11:46
DX: R41.0 Disorientation, unspecified (principal); R56.9 Unspecified convulsions; R55 Syncope and collapse; R10.13 Epigastric pain; I10 Essential (primary) hypertension; F17.210 Nicotine dependence, cigarettes, uncomplicated; G83.9 Paralytic syndrome, unspecified; Z88.0 Allergy status to penicillin; Z88.1 Allergy status to other antibiotic agents; Z88.8 Allergy status to other drugs, medicaments and biological substances; Z91.041 Radiographic dye allergy status
CPT/HCPCS: 36415; 70450; 71045; 74176; 80048; 80076; 80307; 81001; 83690; 84484; 85025; 87086; 93005; 96374; 96375; 96376; 99285; J3010; J3490; G0479

== ENCOUNTER 2018-05-10 12:10 | Inpatient (IN) | payer MEDICARE, OTHER ==
[~2018-05-10] VITALS: Ht 162.6 cm; Wt 66.5 kg
[~2018-05-10 12:10] MED LIST changes: +AMLO5TAB10 PO; -AMLO5TAB7 PO; -GABA800T2 PO; +GABA800T5 PO; -HYDR-2762 PO; +HYDR-2765 PO
--- NOTE | 2018-05-10 12:36 | RAD ---
PQRS Compliance Statement: One or more of the following individualized dose reduction techniques were utilized for this examination: 1. Automated exposure control 2. Adjustment of the mA and/or kV according to patient size 3. Use of iterative reconstruction technique CT head without contrast 05/10/2018 12:21 PM INDICATION: Left-sided facial droop. COMPARISON: CT head January 07, 2018 TECHNIQUE: Multiple axial CT images of the head were obtained from skull base through the vertex without intravenous contrast. FINDINGS: Head: Ventricles, sulci and basal cisterns are within normal limits. Low-attenuation in the periventricular white matter is suggestive of chronic small vessel ischemic changes. There is no hydrocephalus. Guzman-white matter differentiation is normal. There is no acute intracranial hemorrhage. There is no mass, mass effect or midline shift. Posterior fossa is normal in appearance. Visualized portions of the orbits are normal with exception of bilateral lens replacement. Paranasal sinuses are well aerated. Mastoid air cells are well aerated. Scalp and calvaria are normal. IMPRESSION: No acute intracranial hemorrhage. Low-attenuation in the periventricular white matter is suggestive of chronic small vessel ischemic changes. FOR INTERNAL CODING PURPOSES Critical result: Findings discussed with SIRISHA BURR at 05/10/2018 12:31 PM. RESULT CODE: (C) Electronically signed by: Ekaterina Adamson MD (05/10/2018 12:33 PM) [id number]
[2018-05-10 12:40] LABS: BASO # 0.1 x10^3/uL (0.0-0.2); BASO % 1 % (0-3); EOS # 0.1 x10^3/uL (0.0-0.7); EOS % 2 % (0-3); HEMATOCRIT 42.6 % (36.0-47.0); HEMOGLOBIN 14.4 g/dL (12.0-15.5); LYMPH # 0.7 x10^3/uL (1.0-4.8); LYMPH % 13 % (24-48); MEAN CORPUSCULAR HEMOGLOBIN 30 pg (25-35); MEAN CORPUSCULAR HGB CONC 34 g/dL (31-37); MEAN CORPUSCULAR VOLUME 87 fL (79-100); MONO # 0.4 x10^3/uL (0.0-1.1); MONO % 8 % (0-9); NEUT # 4.3 x10^3uL (1.8-7.7); NEUT % 76 % (31-73); PLATELET COUNT 233 x10^3/uL (140-400); RED BLOOD COUNT 4.88 x10^6/uL (3.50-5.40); RED CELL DISTRIBUTION WIDTH 14.1 % (11.5-14.5); WHITE BLOOD COUNT 5.6 x10^3/uL (4.0-11.0)
[2018-05-10 12:56] LABS: ALBUMIN 3.4 g/dL (3.4-5.0); ALBUMIN/GLOBULIN RATIO 0.8 (1.0-1.7); CALCIUM 9.3 mg/dL (8.5-10.1); CREATININE 0.9 mg/dL (0.6-1.0); GFR 73.1; POTASSIUM 4.2 mmol/L (3.5-5.1); TOTAL BILIRUBIN 0.3 mg/dL (0.2-1.0); TOTAL PROTEIN 7.6 g/dL (6.4-8.2)
[2018-05-10 13:11] LABS: BILIRUBIN,URINE NEG (NEG); CLARITY,URINE CLOUDY; COLOR,URINE AMBER; GLUCOSE,URINE NEG (NEG)
[2018-05-10 13:12] LABS: NITRITE,URINE NEG (NEG); UROBILINOGEN,URINE 0.2 mg/dL (0.2 mg/dL)
--- NOTE | 2018-05-10 13:29 | PHYS DOC ---
Past History Past Medical History: Hypertension, Seizure, Other Past Surgical History: Appendectomy, Hysterectomy, Other Additional Past Surgical Histo: thyroid surgery Smoking: Cigarettes Alcohol Use: None Drug Use: Marijuana Adult General Chief Complaint Chief Complaint: WEAKNESS/GENERALIZED HPI HPI Patient is a 77 year old female who brought in by EMS because of sudden onset of weakness. Patient is alert and oriented and complaining of weakness for almost one week with abdominal pain. Patient state they were sitting and talking together 30 minutes prior to arrival to ER around 10:30 and suddenly complaining of shortness of breath and developed right facial droop with slurred speech and she called her daughter who is a [employer] and she called 911. Patient denies headache, chest pain, paresthesia, focal weakness, urinary symptoms, nausea and vomiting. Patient stopped states her speech is getting better and is like her usual speech right now. Patient had history of previous CVA with only deficit as memory problem. Code stroke was activated at arrival of patient to ER. Review of Systems Review of Systems Constitutional: Denies fever or chills [] Eyes: Denies change in visual acuity, redness, or eye pain [] HENT: Denies nasal congestion or sore throat [] Respiratory: Denies cough or shortness of breath [] Cardiovascular: No additional information not addressed in HPI [] GI: Reports abdominal pain, denies nausea, vomiting, bloody stools or diarrhea [ ] : Denies dysuria or hematuria [] Musculoskeletal: Denies back pain or joint pain [] Integument: Denies rash or skin lesions [] Neurologic: Denies headache, focal weakness or sensory changes [] Endocrine: Denies polyuria or polydipsia [] All other systems were reviewed and found to be within normal limits, except as documented in this note. Allergies Allergies Allergies Coded Allergies Type Severity Reaction Last Updated Verified Iodine and Iodide Containing Produc Allergy Severe 06/25/17 Yes Penicillins Allergy Severe Hives 06/25/17 Yes lisinopril Allergy Severe Swelling 06/25/17 Yes azithromycin Allergy Intermediate 06/25/17 Yes meperidine Allergy Intermediate 06/25/17 Yes metoclopramide Allergy Intermediate 06/25/17 Yes nitrofurantoin Allergy Intermediate 06/25/17 Yes Physical Exam Physical Exam Constitutional: Well developed, well nourished, no acute distress, non-toxic appearance. [] HENT: Normocephalic, atraumatic, bilateral external ears normal, oropharynx moist, no oral exudates, nose normal. [] Eyes: PERRLA, EOMI, conjunctiva normal, no discharge. [] Neck: Normal range of motion, no tenderness, supple, no stridor. [] Cardiovascular:Heart rate regular rhythm, no murmur [] Lungs & Thorax: Bilateral breath sounds clear to auscultation [] Abdomen: Bowel sounds normal, soft, suprapubic guarding, no tenderness, no masses, no pulsatile masses. [] Skin: Warm, dry, no erythema, no rash. [] Back: No tenderness, no CVA tenderness. [] Extremities: No tenderness, no cyanosis, no clubbing, ROM intact, no edema. [] Neurologic: Alert and oriented X 3,mild right facial droo, normal sensory function, no focal deficits noted. [] Psychologic: Affect normal, judgement normal, mood normal. [] Current Patient Data Lab Results Laboratory Tests Test 05/10/18 12:19 05/10/18 12:30 05/10/18 12:48 Glucose (Fingerstick) 111 mg/dL (70-99) H White Blood Count 5.6 x10^3/uL (4.0-11.0) Red Blood Count 4.88 x10^6/uL (3.50-5.40) Hemoglobin 14.4 g/dL (12.0-15.5) Hematocrit 42.6 % (36.0-47.0) Mean Corpuscular Volume 87 fL (79-100) Mean Corpuscular Hemoglobin 30 pg (25-35) Mean Corpuscular Hemoglobin Concent 34 g/dL (31-37) Red Cell Distribution Width 14.1 % (11.5-14.5) Platelet Count 233 x10^3/uL (140-400) Neutrophils (%) (Auto) 76 % (31-73) H Lymphocytes (%) (Auto) 13 % (24-48) L Monocytes (%) (Auto) 8 % (0-9) Eosinophils (%) (Auto) 2 % (0-3) Basophils (%) (Auto) 1 % (0-3) Neutrophils # (Auto) 4.3 x10^3uL (1.8-7.7) Lymphocytes # (Auto) 0.7 x10^3/uL (1.0-4.8) L Monocytes # (Auto) 0.4 x10^3/uL (0.0-1.1) Eosinophils # (Auto) 0.1 x10^3/uL (0.0-0.7) Basophils # (Auto) 0.1 x10^3/uL (0.0-0.2) Prothrombin Time 10.1 SEC (9.4-11.4) Prothrombin Time INR 1.0 (0.9-1.1) PTT 25 SEC (23-33) Sodium Level 142 mmol/L (136-145) Potassium Level 4.2 mmol/L (3.5-5.1) Chloride Level 103 mmol/L (98-107) Carbon Dioxide Level 32 mmol/L (21-32) Anion Gap 7 (6-14) Blood Urea Nitrogen 11 mg/dL (7-20) Creatinine 0.9 mg/dL (0.6-1.0) Estimated GFR (Cockcroft-Gault) 73.1 BUN/Creatinine Ratio 12 (6-20) Glucose Level 114 mg/dL (70-99) H Calcium Level 9.3 mg/dL (8.5-10.1) Total Bilirubin 0.3 mg/dL (0.2-1.0) Aspartate Amino Transferase (AST) 15 U/L (15-37) Alanine Aminotransferase (ALT) 14 U/L (14-59) Alkaline Phosphatase 100 U/L (46-116) Troponin I Quantitative < 0.017 ng/mL (0-0.055) Total Protein 7.6 g/dL (6.4-8.2) Albumin 3.4 g/dL (3.4-5.0) Albumin/Globulin Ratio 0.8 (1.0-1.7) L Lipase 117 U/L (73-393) Urine Collection Type Unknown Urine Color Abby Urine Clarity Cloudy Urine pH 7.0 Urine Specific [place] 1.025 Urine Protein >100 mg/dl (NEG-TRACE) Urine Glucose (UA) Neg mg/dL (NEG) Urine Ketones (Stick) 15 mg/dL (NEG) Urine Blood Trace (NEG) Urine Nitrite Neg (NEG) Urine Bilirubin Neg (NEG) Urine Urobilinogen Dipstick 0.2 mg/dL (0.2 mg/dL) Urine Leukocyte Esterase Small (NEG) EKG EKG EKG interpreted by me. EKG at 1234 showed normal sinus rhythm at rate of 73, biatrial enlargement, no inverted T in anteroseptal leads, no acute ST and T- wave abnormalities. Radiology/Procedures Radiology/Procedures [address] [id number] IMAGING REPORT Signed PATIENT: KASSANDRA ORDONEZ ACCOUNT: [id number] : 1940 LOCATION: ER AGE: 77 SEX: F EXAM STATUS: PRE ER ORD. PHYSICIAN: SIRISHA BURR MD REASON: FACIAL DROOP PROCEDURE: CT CODE STROKE HEAD WO [facility] Compliance Statement: One or more of the following individualized dose reduction techniques were utilized for this examination: 1. Automated exposure control 2. Adjustment of the mA and/or kV according to patient size 3. Use of iterative reconstruction technique CT head without contrast 05/10/2018 12:21 PM INDICATION: Left-sided facial droop. COMPARISON: CT head January 07, 2018 TECHNIQUE: Multiple axial CT images of the head were obtained from skull base through the vertex without intravenous contrast. FINDINGS: Head: Ventricles, sulci and basal cisterns are within normal limits. Low-attenuation in the periventricular white matter is suggestive of chronic small vessel ischemic changes. There is no hydrocephalus. Guzman-white matter differentiation is normal. There is no acute intracranial hemorrhage. There is no mass, mass effect or midline shift. Posterior fossa is normal in appearance. Visualized portions of the orbits are normal with exception of bilateral lens replacement. Paranasal sinuses are well aerated. Mastoid air cells are well aerated. Scalp and calvaria are normal. IMPRESSION: No acute intracranial hemorrhage. Low-attenuation in the periventricular white matter is suggestive of chronic small vessel ischemic changes. FOR INTERNAL CODING PURPOSES Critical result: Findings discussed with SIRISHA BURR at 05/10/2018 12:31 PM. RESULT CODE: (C) Electronically signed by: Marc Hooper MD (05/10/2018 12:33 PM) [facility] DICTATED AND SIGNED BY: MARC HOOPER MD DATE: 05/10/18 1230 CC: ASLVADOR BRAY DO; SIRISHA BURR MD ~ Course & Med Decision Making Course & Med Decision Making Pertinent Labs and Imaging studies reviewed. (See chart for details) Evaluation of patient in ER showed 77-year-old female patient brought in by EMS because of sudden onset of facial droop and slurred speech. Patient did not have slurred speech at arrival to ER and had NIHSS of 2 and was not a candidate for TPA of very low score of NIHSS. Patient also complaining of abdominal pain for 1 week and had unremarkable CT of abdomen and pelvis. Patient had a large BM while she was in ER. Dr. Jeffries accepted admission at 1320. Dragon Disclaimer Dragon Disclaimer This electronic medical record was generated, in whole or in part, using a voice recognition dictation system. Departure Departure: Impression: Primary Impression: Acute focal neurological deficit, onset within 3 hours Additional Impressions: Hypertension Abdominal pain Asymptomatic hypertensive urgency Disposition: ADMITTED INPATIENT (at 1321) Admitting Physician: Armen Jeffries (accepted admission at 1320) Condition: IMPROVED Referrals: SALVADOR BRAY DO (PCP) NIHSS - ED NIH Stroke Scale: NIH Stroke Scale Response (Comments) Value Level of Consciousness: 0 Alert/Responsive 0 LOC Questions: 0 Answers both correctly 0 LOC Commands: 0 Performs both tasks 0 Best Gaze: 0 Normal 0 Visual: 0 No visual loss 0 Facial Palsy: 1 Minor paralysis 1 Motor - Left Arm 0 No drift 0 Motor - Right Arm 0 No drift 0 Motor - Left Leg 1 Drift but can hold 1 Motor: Right Leg 0 No drift 0 Limb Ataxia: 0 Absent 0 Sensory: 0 No loss 0 Best Language: 0 Normal 0 Dysathria: 0 Normal 0 Extinction and Inattention: 0 Normal 0 Total 2 Critical Care Time Critical care time was 60 minutes exclusive of procedures. Problem Qualifiers SIRISHA BURR MD May 10, 2018 13:29
--- NOTE | 2018-05-10 15:06 | RAD ---
Examination: CT of the abdomen pelvis without IV contrast HISTORY: History of abdominal pain COMPARISON: 01/07/2018 TECHNIQUE: Axial CT images of the abdomen pelvis were performed without contrast. Coronal and sagittal reformats are performed Exposure: One or more of the following individualized dose reduction techniques were utilized for this examination: 1. Automated exposure control 2. Adjustment of the mA and/or kV according to patient size 3. Use of iterative reconstruction technique FINDINGS: Minimal bibasilar lung atelectasis. No evidence of free air identified in the abdomen. The visualized noncontrasted liver, spleen, adrenals grossly appears unremarkable. The gallbladder mildly distended. The stomach is mildly distended. The visualized pancreas grossly appears unremarkable. The small bowel is nondilated. Feces and gas noted in the colon. Moderate amount of stool and contrast identified in the rectum. Few sigmoid colon diverticulosis. Urinary bladder is mildly distended. No evidence of intrarenal collecting system calculi or hydronephrosis. Severe aortic atherosclerosis. Moderate degenerative changes lumbar spine. IMPRESSION: 1. No acute intra-abdominal findings. 2. Sigmoid colon diverticulosis. Electronically signed by: Giuseppe Hays MD (05/10/2018 3:03 PM) [place] [id number]
--- NOTE | 2018-05-10 15:29 | NUR ---
NURSING NOTE ADMIT PT ADMIT TO ROOM 124 VIA EMS ACCOMPANIED BY EMS PERSONNEL DX WITH ACUTE NEURO DEFICIT AT 1530. PT STATES SHE WOKE UP THIS AM WITH WEAKNESS AND ABDOMINAL PAIN. PT SETTLED IN ROOM. TEGAN AGARWAL.
[2018-05-10 15:44] VITALS: BP 164/90
[2018-05-10 19:36] VITALS: BP 153/82
[2018-05-10] MEDS ORDERED: CYCL-331 PO (19:39)
[2018-05-10] MEDS ORDERED: FURO-69 PO (19:39)
[2018-05-10] MEDS ORDERED: ATOR10TA60 PO (19:39)
[2018-05-10] MEDS ORDERED: ZOLP5TAB5 PO (19:39)
[2018-05-10] MEDS: ACETAMINOPHEN/CODEINE 300/30MG TABLET PO PRN (20:16)
[2018-05-10] MEDS ORDERED: CIPROFLOXACIN HCL 250 MG TABLET PO SCH (21:00)
[2018-05-10] MEDS: LUBIPROSTONE PO SCH (21:00)
[2018-05-10] MEDS: ZOLPIDEM 5 MG TABLET. PO PRN (21:05)
[2018-05-10] MEDS: CYCLOBENZAPRINE 10 MG TABLET. PO SCH (21:05)
[2018-05-10] MEDS: ATORVASTATIN CALCIUM 10 MG TABLET. PO SCH (21:05)
[2018-05-10 22:08] VITALS: BP 119/69
[2018-05-11] MEDS ORDERED: ACETAMINOPHEN WITH CODEINE PO SCH
--- NOTE | 2018-05-11 02:44 | CONS ---
DATE OF CONSULTATION: 05/10/2018 NEUROLOGY CONSULTATION REFERRING PHYSICIAN: Armen Jeffries MD REASON FOR CONSULTATION: Generalized weakness and right facial droop. HISTORY OF PRESENT ILLNESS: This is a 77-year-old right-handed -[place] female, who was admitted through Emergency Room after she presented with a 2-day history of slowly progressive generalized weakness. According to the family members, the patient started having slurred speech and right facial drooping at 10:30 this morning. EMS was activated and transferred the patient to Emergency Room where she was found to be alert and oriented with normal speech; however, her blood pressure was very high at 212/90. Initial nonenhanced head CT scan revealed no evidence of acute intracranial process, but shows chronic small vessel ischemic changes. The patient admitted to be noncompliant with medication for hypertension and she has not been taking aspirin as should be. Currently, the patient denies headache, visual disturbances, nausea, vomiting, chest pain, shortness of breath or palpitation, dysarthria, dysphagia or vertigo. She continues to complain of generalized weakness and pain of the joints in her lower extremities. PAST MEDICAL HISTORY: Significant for stroke in 06/2017 without significant residual, hypertension, hypothyroidism, irritable bowel syndrome, abdominal pain and GERD, hyperlipidemia, chronic lower back pain. PAST SURGICAL HISTORY: Significant for thyroidectomy, cholecystectomy, appendectomy, hysterectomy and cataract extraction. SOCIAL HISTORY: The patient smokes half pack of cigarette daily , but she drinks alcohol occasionally. The patient has 4 children. FAMILY HISTORY: Father had hypertension and cardiac disease. CURRENT HOME MEDICATIONS: Furosemide 20 mg daily, amlodipine 5 mg daily, metoprolol 25 mg daily, aspirin 81 mg daily, Dexilant 10 mg t.i.d., Lipitor 10 mg at bedtime, Tylenol No. 3 one tablet q. 6 hours p.r.n. for pain, Ambien 5 mg at bedtime for insomnia. REVIEW OF SYSTEMS: A 10-point review of system was performed and consistent with generalized weakness, arthralgia in the lower extremities. Otherwise, as mentioned above in the history of present illness. PHYSICAL EXAMINATION: GENERAL: Well-developed, well-nourished -[place] female, not in acute distress. She weighs 144.3 pounds. VITAL SIGNS: Blood pressure 164/90, respiratory rate 20, pulse is 77, oxygen saturation is in 96% on room air and temperature 97.5. HEENT: Normocephalic, atraumatic, otherwise, unremarkable. NECK: Supple. Negative for carotid bruit, lymphadenopathy or thyromegaly. LUNGS: scattered wheezing . CARDIOVASCULAR: Regular rate and rhythm, normal S1, S2. There is no S3, S4, or murmur. ABDOMEN: Soft. Bowel sounds positive. EXTREMITIES: Negative for cyanosis, clubbing or pitting edema. NEUROLOGICAL EXAM: Mental Status: The patient is alert and oriented x 3. The speech is fluent. There is no language dysfunction. Memory, judgment, and abstract thinking are fair. The patient denies hallucination or delusion. CRANIAL NERVES: Visual manuel are full. The pupils are reactive to light and accommodation. The extraocular movements are intact. There is no nystagmus. There is no facial motor or sensory deficit. Hearing is intact bilaterally. The palate is elevated symmetrically. Sternocleidomastoid muscles are powerful bilaterally. The patient shrugs her shoulders symmetrically. Protrudes her tongue in the midline without fasciculation or atrophy. MOTOR EXAMINATION: No focal muscle bulk was seen. The tone is normal. The strength is a 5/5 throughout in the upper extremity and 4/5 in the lower extremities. Sensory examination revealed normal pinprick, light touch, vibratory and position senses. Deep tendon reflexes were asymmetric and active without pathologic responses. Gait: The stance is steady. DIAGNOSTIC DATA: Initial nonenhanced head CT scan revealed no acute intracranial process, but showed chronic small vessel ischemic changes in the white matter bilaterally. Abdomen and pelvis CT scan revealed no acute abdominal findings, sigmoid colon, diverticulosis. LABORATORY DATA: CBC revealed white blood cells of 5600, hemoglobin 14.4, hematocrit 42.6, platelet count 233,000. Chemistry revealed sodium of 142, potassium 4.2, chloride 103, CO2 of 32. BUN 11, creatinine 0.9, glucose 114, calcium is 9.3. Troponin level is normal. Lipase is normal. Coagulation, normal PT, INR and PTT. Urinalysis is negative for urinary tract infections. IMPRESSION: 1. Possible transient ischemic attack, presented with slurred speech and right facial drooping with no current focal neurological deficit, probably due to severe hypertension and noncompliance with medications for hypertension and not compliant with aspirin. 2. Multiple medical problems include chronic low back pain, history of transient ischemic attack and stroke, hypertension, hyperlipidemia, hypothyroidism, gastroesophageal reflux disease. Previous MRI performed in 06/2017 revealed no evidence of significant for carotid artery stenosis. RECOMMENDATIONS: 1. The patient should be compliant with medications mainly for pressure medications for hypertension. The patient should continue on aspirin 325 mg. 2. Physical therapy evaluation. 3. Continue with current management initiated by Dr. Jeffries. M Justin RODRIGUEZ MD DR: MATEUSZ/sonia JOB#: [id number] / [id number] ZECHARIAH
[2018-05-11 05:31] VITALS: BP 144/79
[2018-05-11 06:57] LABS: HEMATOCRIT 41.1 % (36.0-47.0); HEMOGLOBIN 13.8 g/dL (12.0-15.5); RED BLOOD COUNT 4.71 x10^6/uL (3.50-5.40); RED CELL DISTRIBUTION WIDTH 13.5 % (11.5-14.5); WHITE BLOOD COUNT 3.7 x10^3/uL (4.0-11.0)
[2018-05-11 07:14] LABS: ALBUMIN 3.3 g/dL (3.4-5.0); ALBUMIN/GLOBULIN RATIO 0.8 (1.0-1.7); CALCIUM 9.1 mg/dL (8.5-10.1); CREATININE 0.9 mg/dL (0.6-1.0); GFR 73.1; POTASSIUM 4.6 mmol/L (3.5-5.1); TOTAL BILIRUBIN 0.5 mg/dL (0.2-1.0); TOTAL PROTEIN 7.2 g/dL (6.4-8.2)
[2018-05-11] MEDS ORDERED: ASPIRIN 325 MG TABLET PO SCH (08:00)
[2018-05-11] MEDS: METOPROLOL SUCC 24HR ER 25 MG TAB.ER.24H. PO SCH (08:08)
[2018-05-11] MEDS: ASPIRIN 325 MG TABLET PO SCH (08:08)
[2018-05-11] MEDS: FUROSEMIDE 20 MG TABLET PO SCH (08:08)
[2018-05-11] MEDS: CYCLOBENZAPRINE 10 MG TABLET. PO SCH ×3 (08:08→20:33)
[2018-05-11] MEDS: amLODIPine BESYLATE 5 MG TABLET PO SCH (08:08)
[2018-05-11] MEDS ORDERED: PANTOPRAZOLE SODIUM 40 MG PO SCH (09:00)
[2018-05-11] MEDS: LUBIPROSTONE PO SCH ×2 (09:00→20:33)
[2018-05-11] MEDS: ACETAMINOPHEN/CODEINE 300/30MG TABLET PO PRN ×2 (10:57→20:33)
[2018-05-11 11:22] VITALS: BP 123/68
--- NOTE | 2018-05-11 14:31 | PN ---
DATE: 05/11/2018 SUBJECTIVE: The patient stated she does not feel good. She complains of stomach pain. She has been standing and walking, eating and drinking well. She denies headaches, visual disturbances, nausea, vomiting, chest pain, shortness of breath or palpitations. OBJECTIVE: GENERAL: A well-developed, well-nourished -[place] female, not in acute distress. VITAL SIGNS: Blood pressure 144/79, respiratory rate 18, pulse is 80 and regular, temperature 98.2, oxygen saturation 94% on room air. HEENT: Normocephalic, atraumatic, otherwise unremarkable. NECK: Supple. Negative for carotid bruit, lymphadenopathy or thyromegaly. LUNGS: With scattered wheezing, no rales. ABDOMEN: Soft. Bowel sounds positive. EXTREMITIES: Negative for cyanosis, clubbing, or pitting edema. The patient has arthralgia of the knees, more prominent on the left side. NEUROLOGIC: Mental Status: The patient is alert and oriented x 3. The speech is fluent. There is no language dysfunction. Memory, judgment, and abstract thinking are normal. The patient denies hallucination or delusion. Cranial nerves are intact. Motor Examination: No focal muscle bulk was seen. The tone is normal. The strength is 4/5 throughout. Sensory examination revealed normal pinprick, light touch, vibratory and position senses. Deep tendon reflexes were symmetric and hypoactive with absent Achilles responses. Gait not tested. LABORATORY DATA: CBC revealed white blood cells of 3.7, hemoglobin 13.8, hematocrit 41.1, platelet count 220. Chemistry revealed sodium of 141, potassium 4.6, chloride 103, CO2 is 31, BUN 10, creatinine 0.9, glucose 91, calcium 9.1. IMPRESSION: 1. Possible transient ischemic attack -- resolved. No recurrence. 2. Severe hypertension -- improved. 3. Abdominal pain with negative abdominal CT. 4. Scattered wheezing due to smoking. 5. Multiple medical problems include hyperlipidemia, hypothyroidism, gastroesophageal reflux disease. RECOMMENDATIONS: 1. Continue with current management initiated by Dr. Jeffries. 2. Continue with current medications. 3. Physical therapy. 4. Check thyroid profile. M Justin RODRIGUEZ MD DR: MATEUSZ/sonia JOB#: [id number] / [id number]
[2018-05-11] MEDS: SENNOSIDES 8.6 MG TABLET PO PRN (14:54)
[2018-05-11] MEDS ORDERED: MAGNESIUM CITRATE 296 ML SOLUTION. PO ONE (15:00)
[2018-05-11 15:41] VITALS: BP 141/72
--- NOTE | 2018-05-11 16:05 | HP ---
ADMIT DATE: 05/10/2018 HISTORY OF PRESENT ILLNESS: The patient is a 77-year-old female patient who was admitted to the Emergency Room where she presented with a 2-day history of progressive generalized weakness. According to her family, the patient started having slurred speech with right facial drooping. Yesterday morning, on the day of admission at 10:30 emergency medical service was activated and transferred the patient to the Emergency Room where she was found to be alert, oriented with normal speech. However, her blood pressure was extremely high at 212/[address] scan revealed no evidence of acute intracranial process shows chronic small vessel ischemic changes. The patient admitted that she was noncompliant with her medication for hypertension. In fact, she has not taken any of her aspirin that has been prescribed by 2 neurologists. On further questioning her, the patient denied any headache, visual disturbances, nausea, vomiting, chest pain, shortness of breath, palpitation, dysarthria or dysphagia or vertigo, but did continue complaining of generalized weakness and particularly joints of her lower extremities. PAST MEDICAL HISTORY: Significant for stroke in 06/2017 without significant residual and neurological deficits. She is known to have hypertension, hypothyroidism, irritable bowel syndrome, abdominal pain, gastroesophageal reflux disease, hyperlipidemia, and chronic low back pain. PAST SURGICAL HISTORY: Significant for thyroidectomy, cholecystectomy, appendectomy, hysterectomy and cataract extraction. FAMILY HISTORY: Her father has hypertension and cardiac disease. SOCIAL HISTORY: The patient has 4 children. She drinks alcohol occasionally. She smokes about half a pack a day of cigarette. REVIEW OF SYSTEMS: As per history of present illness. MEDICATIONS: She is currently on following medications: cyclobenzaprine 10 mg 2 times a day, atorvastatin 10 mg at bedtime, metoprolol succinate 25 mg daily, amlodipine 5 mg daily, aspirin 81 mg once a day, Ambien 5 mg daily as needed, furosemide 20 mg once a day and Amitiza 1 capsule p.o. b.i.d. PHYSICAL EXAMINATION: GENERAL: On arrival to the Emergency Room, the patient was awake, alert, responding appropriately. All cranial nerves are intact. She moves extremities without difficulty. There was no pallor, jaundice, cyanosis, or thyromegaly. No jugular venous distension. No limb edema. VITAL SIGNS: Her heart rate was 75, blood pressure was 162/73, temperature was 98, respiratory rate was 16 and oxygen saturation was 100%. HEAD, EYES, EARS, NOSE AND THROAT: Showed normocephalic, atraumatic. NECK: Supple. HEART: Showed normal first and second heart sounds with no gallop, rub or murmur. CHEST: Clear to auscultation. No crepitation or rhonchi. ABDOMEN: Distended, soft, tenderness mostly in the right lower quadrant. There is no guarding or rigidity. No organomegaly. All hernial orifices are intact. Bowel sounds are normal. NEUROLOGIC: She is awake, alert, responding appropriately. All her cranial nerves were intact. EXTREMITIES: She moves all extremities without difficulty. LABORATORY DATA: On admission showed a white cell count 5600, hemoglobin 14.4, hematocrit 42.6, MCV 87 and platelet count 233,000 with normal manual differential. Her serum sodium was 142, potassium 4.2, chloride 103, bicarbonate 32, anion gap of 7, BUN 11, creatinine 0.9, estimated GFR was 73 mL per minute. Her glucose 114, calcium was 9.3. Total bilirubin, AST, ALT, alkaline phosphatase were normal. Her total protein was 7.6, albumin was 3.4. Serum lipase 117. Her prothrombin time was 10.1, INR of 1, aPTT was 25. Urinalysis was essentially unremarkable. The imaging studies showed that her CT scan of the head showed no acute intracranial hemorrhage. The patient has low attenuation in the periventricular white matter suggestive of chronic small vessel ischemic changes. She complained of abdominal pain. She had a CT scan of the abdomen and pelvis, which basically showed that there is minimal bibasilar lung atelectasis. No evidence of free air identified in the abdomen. The visualized noncontrasted liver, spleen, adrenals grossly appears unremarkable. The gallbladder mildly distended. The stomach is mildly distended. The visualized pancreas grossly appears unremarkable. The small bowel is nondilated. Feces and gas noted in the colon. The patient has moderate amount of stool and contrast identified in the rectum and few sigmoid colon diverticulosis, urinary bladder is mildly distended. No evidence of intrarenal collecting system, calculi or hydronephrosis. Some severe aortic atherosclerosis and moderate degenerative changes of the lumbar spine. ASSESSMENT AND PLAN: The patient was admitted with possible ischemic attack, presented with slurred speech and right facial droop that has apparently resolved by the time she arrived to the Emergency Room. We did consult the neurologist as well as physical and occupational therapist. JOSE A GUZMÁN MD DR: SUDHEER/sonia JOB#: [id number] / [id number]
[2018-05-11 19:51] VITALS: BP 102/67
[2018-05-11] MEDS: ATORVASTATIN CALCIUM 10 MG TABLET. PO SCH (20:33)
[2018-05-11 23:33] VITALS: BP 118/71
--- NOTE | 2018-05-12 00:53 | PN ---
DATE: 05/11/2018 SUBJECTIVE: The patient is sitting, propped up, eating her lunch comfortably, in no apparent distress. On questioning her, she denied any slurring of speech, denied any weakness, tingling, or numbness, denied any headache, blurring of vision. The CT scan was done, which was unremarkable. She was seen by the neurologist, who thinks that she probably might have transient ischemic attack that has resolved. She clearly has been noncompliant with her medication and kind of in the form of aspirin and antihypertensive medication. On questioning her today, her main complaint was pain in the right lower quadrant. CT scan showed that she is constipated. PHYSICAL EXAMINATION: GENERAL: When I saw her this afternoon, she looked well and was clearly in no apparent respiratory distress. No pallor, jaundice, cyanosis, or thyromegaly. No jugular venous distension. No lower limb edema. VITAL SIGNS: Her heart rate was 71, blood pressure was 123/68, temperature was 98.4, respiratory rate was 20 and oxygen saturation was 92%. HEENT: Examination of the head, eyes, ears, nose and throat showed normocephalic, atraumatic. NECK: Supple. HEART: Showed normal first and second heart sounds. No gallop, rub or murmur. CHEST: Clear to auscultation. No crepitation or rhonchi. ABDOMEN: Distended, soft, nontender. No guarding or rigidity. No organomegaly. All hernial orifices are intact. Bowel sounds normal. NEUROLOGIC: She was awake, alert, responding appropriately. All her cranial nerves are intact. She walked with physical therapy for about 60 feet. Her intake over the last 24 hours and output are incompletely recorded. LABORATORY DATA: Her lab work this morning showed a white cell count was 3700, hemoglobin 13.8, hematocrit 41, MCV 87 and platelet count of 210,000. Her serum sodium was 141, potassium 4.6, chloride 103, bicarbonate 31, anion gap of 7, BUN 10, creatinine 0.9, estimated GFR was 73 mL per minute. Her glucose was 91, calcium was 9.1. Total bilirubin, AST, ALT, alkaline phosphatase were normal. Total protein was 7.2, albumin 3.3. Her triglycerides were 76, total cholesterol was 96, LDL was 94, VLDL was 15, HDL was 77 and the ratio was 2. Urinalysis is unremarkable. ASSESSMENT: 1. Possible transient ischemic attack, presented with slurring speech and right focal facial drooping that has resolved. 2. Noncompliance with medication, particularly for hypertension as well as aspirin. 3. Multiple other medical problems including previous history of ischemic attack and strokes, hypertension, hyperlipidemia, hypothyroidism, gastroesophageal reflux disease. PLAN: Plan is to continue with aspirin 325 mg once a day, continue all the ____ medications. For her constipation, we will start her on MiraLax and mag citrate and we will continue with physical and occupational therapy. If she remains stable tomorrow, she can be discharged home. JOSE A GUZMÁN MD DR: SUDHEER/sonia JOB#: [id number] / [id number]
[2018-05-12] MEDS: ACETAMINOPHEN/CODEINE 300/30MG TABLET PO PRN ×3 (03:27→17:23)
[2018-05-12 05:08] VITALS: BP 141/81
[2018-05-12] MEDS: SENNOSIDES 8.6 MG TABLET PO PRN (08:18)
[2018-05-12] MEDS: ASPIRIN 325 MG TABLET PO SCH (08:18)
[2018-05-12] MEDS: METOPROLOL SUCC 24HR ER 25 MG TAB.ER.24H. PO SCH (08:18)
[2018-05-12] MEDS: CYCLOBENZAPRINE 10 MG TABLET. PO SCH ×3 (08:19→20:30)
[2018-05-12] MEDS: amLODIPine BESYLATE 5 MG TABLET PO SCH (08:19)
[2018-05-12] MEDS: FUROSEMIDE 20 MG TABLET PO SCH (08:19)
[2018-05-12] MEDS: POLYETHYLENE GLYCOL 3350 17 GM PACKET. PO SCH (08:21)
[2018-05-12] MEDS: LUBIPROSTONE PO SCH (08:22)
[2018-05-12 10:30] VITALS: BP 136/76
--- NOTE | 2018-05-12 11:44 | PN ---
DATE: SUBJECTIVE: The patient continues to complain of epigastric and hypogastric abdominal pain. She denies nausea, vomiting, chest pain, shortness of breath or palpitation, headache, visual disturbances, numbness or vertigo. The patient is eating and drinking well. She works with physical therapy as well. OBJECTIVE: GENERAL: Well-developed and well-nourished female, in no acute distress. VITAL SIGNS: Blood pressure 141/81, respiratory rate 18, pulse is 75 and regular, temperature is 97.8, and oxygen saturation ____% on room air. HEENT: Normocephalic and atraumatic, otherwise unremarkable. NECK: Supple. Negative for carotid bruit, lymphadenopathy or thyromegaly. LUNGS: Clear to A and P. CARDIOVASCULAR: Regular rhythm, normal S1, S2. There is no S3, S4 or murmur. ABDOMEN: Soft. Bowel sounds positive. EXTREMITIES: Negative for cyanosis, clubbing or pitting edema. NEUROLOGICAL EXAM: Mental Status: The patient is alert and oriented x 3. Speech is fluent. There is no language dysfunction. Memory, judgment, and abstract thinking are normal. The patient denies hallucination or delusion. Cranial nerves are intact. Motor Examination: No focal muscle bulk was seen. The tone is normal. The strength is 4/5 throughout. Sensory examination revealed normal pinprick, light touch, vibratory and position senses. Deep tendon reflexes were symmetric and hypoactive without pathologic responses. Gait: The stance is steady. The patient uses a walker for ambulation. IMPRESSION: 1. Possible transient ischemic attack - resolved. No recurrence neurological deficit. 2. Abdominal pain with negative abdomen CT scan. 3. Multiple medical problems include hypertension, hypothyroidism, and gastroesophageal reflux disease. RECOMMENDATIONS: 1. Continue with current management initiated by Dr. Jeffries. 2. Physical therapy as tolerated. M Justin RODRIGUEZ MD DR: MATEUSZ/sonia JOB#: [id number] / [id number]
[2018-05-12] MEDS ORDERED: METHYLNALTREXONE 12 MG/0.6 ML VIAL. SQ ONE (13:00)
[2018-05-12 15:58] VITALS: BP 121/74
--- NOTE | 2018-05-12 16:01 | RAD ---
KUB History: Severe constipation Comparison: 05/10/2018 CT exam Findings: Single supine AP view of the abdomen is submitted. There is residual oral contrast in the colon. There is again colonic diverticulosis. Exam is insufficient for evaluation for free air. There are multiple likely phleboliths in the pelvis. No gas dilated small bowel is identified. Impression: 1. There is residual oral contrast in the colon, colonic diverticulosis. Electronically signed by: Abdirahman Talley MD (05/12/2018 3:55 PM) [facility]
[2018-05-12] MEDS: LUBIPROSTONE 24 MCG CAPSULE PO SCH (16:48)
[2018-05-12 19:43] VITALS: BP 113/59
[2018-05-12] MEDS: ZOLPIDEM 5 MG TABLET. PO PRN (20:30)
[2018-05-12] MEDS: ATORVASTATIN CALCIUM 10 MG TABLET. PO SCH (20:30)
--- NOTE | 2018-05-12 20:40 | PN ---
DATE: 05/12/2018 SUBJECTIVE: The patient is sitting comfortably in her chair, eating her lunch comfortably, in no apparent distress. She continued to complain of abdominal pain. She has not had any bowel movement despite treatment with Colace and magnesium citrate. She is on Tylenol No. 3, probably has opiate-induced constipation. PHYSICAL EXAMINATION: GENERAL: When I examined her, she was pale, no jaundice, cyanosis, or thyromegaly. No jugular venous distension. No limb edema. VITAL SIGNS: Her heart rate was 64, blood pressure 136/76, temperature was 98.1, respiratory rate was 18 and oxygen saturation was 94%. HEAD, EYES, EARS, NOSE AND THROAT: Showed normocephalic, atraumatic. NECK: Supple. HEART: Showed normal first and second heart sounds. No gallop, rub or murmur. CHEST: Clear to auscultation. No crepitation or rhonchi. ABDOMEN: Distended, soft. Tenderness mostly in the right lower quadrant. There is no guarding or rigidity. No organomegaly. All hernial orifices are intact. Bowel sounds normal. NEUROLOGIC: She is awake, alert, responding appropriately. All cranial nerves are intact. She moves extremities without difficulty. She ambulates with a walker without difficulty. Her intake over the last 24 hours was 808 and no output was recorded. LABORATORY DATA: As of yesterday, her BUN was 10, creatinine 0.9. Her fasting lipid profile are normal. Her lipase was normal. Her white cell count was 3,700, hemoglobin 14, hematocrit 41, MCV 87, and platelet count 210,000. ASSESSMENT: 1. Possible transient ischemic attack, presenting with a slurring speech and right facial drooping that has resolved. 2. Noncompliance with medication, particularly for hypertension as well as aspirin. 3. Multiple medical problems including: A. History of transient ischemic attack and stroke. B. Hypertension. C. Hyperlipidemia. D. Hypothyroidism. E. Gastroesophageal reflux disease. F. Constipation. PLAN: My plan is to continue with all her medication. I will add Relistor and I will check also her thyroid function test and we will decide the further management accordingly. JOSE A GUZMÁN MD DR: SUDHEER/sonia JOB#: [id number] / [id number]
[2018-05-12 22:26] VITALS: BP 120/75
[2018-05-13] MEDS: ACETAMINOPHEN/CODEINE 300/30MG TABLET PO PRN (02:10)
[2018-05-13 05:27] VITALS: BP 123/79
[2018-05-13 07:09] LABS: ALBUMIN 3.3 g/dL (3.4-5.0); ALBUMIN/GLOBULIN RATIO 0.8 (1.0-1.7); CREATININE 0.8 mg/dL (0.6-1.0); GFR 83.7; POTASSIUM 4.4 mmol/L (3.5-5.1); TOTAL BILIRUBIN 0.3 mg/dL (0.2-1.0); TOTAL PROTEIN 7.3 g/dL (6.4-8.2)
[2018-05-13] MEDS: POLYETHYLENE GLYCOL 3350 17 GM PACKET. PO SCH (08:16)
[2018-05-13] MEDS: amLODIPine BESYLATE 5 MG TABLET PO SCH (08:16)
[2018-05-13] MEDS: CYCLOBENZAPRINE 10 MG TABLET. PO SCH (08:16)
[2018-05-13] MEDS: ASPIRIN 325 MG TABLET PO SCH (08:16)
[2018-05-13] MEDS: METOPROLOL SUCC 24HR ER 25 MG TAB.ER.24H. PO SCH (08:17)
[2018-05-13] MEDS: LUBIPROSTONE 24 MCG CAPSULE PO SCH (08:17)
[2018-05-13] MEDS: FUROSEMIDE 20 MG TABLET PO SCH (08:17)
[2018-05-13 11:14] VITALS: BP 113/71
--- NOTE | 2018-05-13 11:47 | EKG ---
[address] [address] Test Date: 2018-05-10 Test Time: 12:34:07 Pat Name: KASSANDRA ORDONEZ Department: Room: 124 A Gender: F [employer]: RAYRAY : 1940 Requested By: SIRISHA BURR Order Number: [id number] Reading MD: Edison Savage Measurements Intervals Burt Rate: 73 P: 71 ND: 144 QRS: 75 QRSD: 114 T: 62 QT: 410 QTc: 456 Interpretive Statements SINUS RHYTHM BIATRIAL ENLARGEMENT R-S TRANSITION ZONE IN V LEADS DISPLACED TO THE RIGHT INCOMPLETE RIGHT BUNDLE BRANCH BLOCK Electronically Signed On 05-17-2018 10:26:51 [employer] by Edison Savage
--- NOTE | 2018-05-13 12:55 | PN ---
DATE: 05/13/2018 SUBJECTIVE: The patient denies any new medical or neurological complaints. She continues to complain of generalized abdominal pain. She denies nausea, vomiting, chest pain, shortness of breath, palpitation. OBJECTIVE: GENERAL: Well-developed, well-nourished -[place] female, not in acute distress. VITAL SIGNS: Blood pressure 123/79, respiratory rate 18, pulse is 58 and regular, temperature is 97.8, oxygen saturation is 94% on room air. HEENT: Normocephalic, atraumatic, otherwise unremarkable. NECK: Supple. Negative for carotid bruit, lymphadenopathy or thyromegaly. LUNGS: Clear to A and P. CARDIOVASCULAR: Regular rate and rhythm, normal S1, S2. There is no S3, S4, or murmur. ABDOMEN: Soft, bowel sounds positive. EXTREMITIES: Negative for cyanosis, clubbing, edema. NEUROLOGIC: Mental status: The patient is alert and oriented x 3. Speech is fluent. There is no language dysfunction. Cranial nerves are intact. No focal motor or sensory deficit. Strength was 4/5 throughout. Sensory exam reveals normal pinprick, light touch and vibratory position sense. Deep tendon reflexes are symmetric and hypoactive with absent Achilles responses. Gait and stance is steady. The patient uses a walker for ambulation. IMPRESSION: 1. Questionable transient ischemic attack presented with slurred speech - resolved, no recurrence. 2. Abdominal pain. 3. Hypertension. 4. Hypothyroidism. 5. Gastroesophageal reflux disease. PLAN: Continue with physical therapy as tolerated and continue with current management initiated by Dr. Jeffries. MARIUSZ SMILEY MD DR: SARITA/sonia JOB#: [id number] / [id number]
--- NOTE | 2018-05-13 14:41 | NUR ---
NURSING NOTE DISCHARGE PT DISCHARGED TO HOME WITH HOSPICE AT 1430 ACCOMPANIED BY FAMILY.\ WRITTEN AND VERBAL DISCHARGE INSTRUCTIONS GIVEN TO PT. WRITTEN SCRIPTS GIVEN TO PT. NO COMPLICATIONS. TEGAN AGARWAL.
[2018-05-13] MEDS ORDERED: FUROSEMIDE 20 MG/2 ML VIAL IVP ONE (14:45)
--- NOTE | 2018-05-13 15:45 | DS ---
DATE OF DISCHARGE: 05/13/2018 HOSPITAL COURSE: The patient is a 77-year-old -French female patient who was initially admitted with a complaint of slurring of speech and right facial drooping. However, by the time she arrived to the hospital, this finding has largely resolved. Her CT scan revealed no acute intracranial process, which showed chronic small vessel ischemic changes in the white matter bilaterally. Her abdomen and pelvic CT scan revealed no acute abdominal finding, although she continued to have abdominal pain and was found to be constipated and was treated aggressively and has had multiple bowel movements. The patient and her family are basically opted for hospice care and the patient will be discharged home to go on hospice. PHYSICAL EXAMINATION: GENERAL: When I saw her today, she looked well and was clearly in no apparent respiratory distress. No pallor, jaundice, cyanosis, or thyromegaly. No jugular venous distension. No lower limb edema. VITAL SIGNS: Her heart rate was 71, blood pressure was 113/71, temperature was 98.3, respiratory rate 20, and oxygen saturation was 94% on room air. HEAD, EYES, EARS, NOSE AND THROAT: Showed normocephalic, atraumatic. NECK: Supple. HEART: Showed normal first and second sounds. No gallop, rub or murmur. CHEST: Clear to auscultation. No crepitation or rhonchi. ABDOMEN: Distended, soft, nontender. NEUROLOGIC: She is awake, alert, responding appropriately. Cranial nerves intact. EXTREMITIES: She moves extremities without difficulty. She ambulates with a walker. LABORATORY DATA: Showed a white cell count 3700, hemoglobin 13.8, hematocrit 41, MCV 87, and platelet count 210,000. Serum sodium 140, potassium 4.4, chloride 102, bicarbonate 33, anion gap of 5, BUN 12, creatinine 0.8, estimated GFR was 84 mL per minute. Her glucose was 85, calcium 9. Total bilirubin, AST, ALT, alkaline phosphatase were normal. Total protein was 7.3, albumin was 3.3. Her TSH was normal. DISCHARGE MEDICATIONS: She was discharged home to go on hospice and to continue on following medications: Amlodipine 5 mg once a day, aspirin 81 mg once a day, atorvastatin calcium 10 mg at bedtime, cyclobenzaprine 10 mg 3 times a day, furosemide 20 mg once a day, Amitiza 8 mcg twice a day, metoprolol succinate for Toprol-XL 25 mg once a day, and Ambien 5 mg at bedtime. FINAL DISCHARGE DIAGNOSES: 1. Possible transient ischemic attack, presenting with slurring of speech and facial droop that has resolved. 2. Noncompliance with medication, particularly with hypertension as well as her aspirin. 3. Multiple other medical problems including: A. History of transient ischemic attacks and strokes. B. Hypertension. C. Hyperlipidemia. D. Hypothyroidism. E. Gastroesophageal reflux disease. F Constipation. JOSE A GUZMÁN MD DR: SUDHEER/sonia JOB#: [id number] / [id number]
== END 2018-05-13 14:30 | disposition hospice, home (50) | DRG 69 ==
LOC: ER 12:10 → 1 SOUTH 13:24
PROVIDERS: ADMIT Internal Medicine; ATTEND Internal Medicine
DX: G45.9 Transient cerebral ischemic attack, unspecified (principal); I16.0 Hypertensive urgency; I10 Essential (primary) hypertension; R29.810 Facial weakness; F17.210 Nicotine dependence, cigarettes, uncomplicated; Z51.5 Encounter for palliative care; G89.29 Other chronic pain; K21.9 Gastro-esophageal reflux disease without esophagitis; K59.03 Drug induced constipation; E78.5 Hyperlipidemia, unspecified; E89.0 Postprocedural hypothyroidism; Z90.49 Acquired absence of other specified parts of digestive tract; Z88.0 Allergy status to penicillin; Z88.8 Allergy status to other drugs, medicaments and biological substances; Z91.041 Radiographic dye allergy status; Z98.49 Cataract extraction status, unspecified eye; Z79.899 Other long term (current) drug therapy; Z90.710 Acquired absence of both cervix and uterus; Z82.49 Family history of ischemic heart disease and other diseases of the circulatory system; Z86.73 Personal history of transient ischemic attack (TIA), and cerebral infarction without residual deficits; Z91.14 Patient's other noncompliance with medication regimen
CPT/HCPCS: 36415; 70450; 74018; 74176; 80053; 80061; 81003; 82947; 83690; 84443; 84484; 85025; 85027; 85610; 85730; 93005; 99291; 99406; 92610; 97535

== ENCOUNTER 2019-05-03 09:50 | Emergency (ER) | payer MEDICARE, OTHER ==
[~2019-05-03] VITALS: Ht 162.6 cm; Wt 75.3 kg
[~2019-05-03 09:50] MED LIST changes: +ATOR10TA60 PO; +CYCL-331 PO; +FURO-69 PO; +ZOLP5TAB5 PO
--- NOTE | 2019-05-03 10:13 | PHYS DOC ---
Past History Past Medical History: CVA, Hypertension, Seizure Past Surgical History: Appendectomy, Hysterectomy, Other Additional Past Surgical Histo: thyroid surgery Smoking: Cigarettes Alcohol Use: None Drug Use: Marijuana Adult General Chief Complaint Chief Complaint: ABDOMINAL PAIN HPI HPI 78-year-old female presents with right lower quadrant abdominal pain. She tells me that she has had increased pain last couple of days. It is mostly in her central abdomen and her right lower quadrant. She denies fever, chills, vomiting, diarrhea. She cannot think of any reason why it's bothering her more. She describes the pain as a moderate cramping sensation. Review of Systems Review of Systems Constitutional: Denies fever or chills [] Eyes: Denies change in visual acuity, redness, or eye pain [] HENT: Denies nasal congestion or sore throat [] Respiratory: Denies cough or shortness of breath [] Cardiovascular: No additional information not addressed in HPI [] GI: Right lower quadrant abdominal pain. Denies nausea, vomiting, bloody stools or diarrhea [] : Denies dysuria or hematuria [] Musculoskeletal: Denies back pain or joint pain [] Integument: Denies rash or skin lesions [] Neurologic: Denies headache, focal weakness or sensory changes [] Endocrine: Denies polyuria or polydipsia [] All other systems were reviewed and found to be within normal limits, except as documented in this note. Allergies Allergies Allergies Coded Allergies Type Severity Reaction Last Updated Verified Iodine and Iodide Containing Produc Allergy Severe 06/25/17 Yes Penicillins Allergy Severe Hives 06/25/17 Yes lisinopril Allergy Severe Swelling 06/25/17 Yes azithromycin Allergy Intermediate 06/25/17 Yes meperidine Allergy Intermediate 06/25/17 Yes metoclopramide Allergy Intermediate 06/25/17 Yes nitrofurantoin Allergy Intermediate 06/25/17 Yes Physical Exam Physical Exam Constitutional: Well developed, well nourished, no acute distress, non-toxic appearance. [] HENT: Normocephalic, atraumatic, bilateral external ears normal, oropharynx m oist, no oral exudates, nose normal. [] Eyes: PERRLA, EOMI, conjunctiva normal, no discharge. [] Neck: Normal range of motion, no tenderness, supple, no stridor. [] Cardiovascular:Heart rate regular rhythm, no murmur [] Lungs & Thorax: Bilateral breath sounds clear to auscultation [] Abdomen: Bowel sounds normal, soft, moderate right lower quadrant tenderness without guarding, no masses, no pulsatile masses. [] Skin: Warm, dry, no erythema, no rash. [] Back: No tenderness, no CVA tenderness. [] Extremities: No tenderness, no cyanosis, no clubbing, ROM intact, no edema. [] Neurologic: Alert and oriented X 3, left-sided facial droop at baseline.[] Psychologic: Affect normal, judgement normal, mood normal. [] EKG EKG [] Radiology/Procedures Radiology/Procedures [] Impressions: Examination: CT of the abdomen pelvis without contrast HISTORY: History of right lower quadrant abdominal pain COMPARISON: 05/05/2018 TECHNIQUE: Axial CT images of the abdomen pelvis were performed without contrast. Coronal and sagittal reformats are performed Exposure: One or more of the following individualized dose reduction techniques were utilized for this examination: 1. Automated exposure control 2. Adjustment of the mA and/or kV according to patient size 3. Use of iterative reconstruction technique FINDINGS: Minimal atelectasis left lower lobe of the lung. No evidence of free air identified in the abdomen. The evaluation of the solid organs is limited due to lack of IV contrast. The evaluation of bowel is limited due to lack of oral contrast. The visualized noncontrasted liver, spleen, adrenals grossly appears unremarkable. Gallbladder is mildly distended. The visualized pancreas grossly appears unremarkable. Moderate thickened appearance of the wall of the distal stomach or first part of duodenum identified surrounding inflammatory fat stranding. Multiple enlarged lymph nodes identified just inferior to the stomach with the largest measuring 1.4 cm. The small bowel is nondilated. Feces and gas noted in the colon. Sigmoid colon diverticulosis. Small amount of free fluid identified in the pelvis. Urinary bladder is mildly distended. No evidence of intraluminal system calculi. Sigmoid colon diverticulosis. Moderate degenerative changes lumbar spine. Severe aortic atherosclerosis. Severe atherosclerotic calcifications identified in the proximal bilateral renal arteries. IMPRESSION: 1. Thickened appearance of the mucosal wall of the distal stomach/first part of duodenum with surrounding inflammatory fat stranding and few enlarged surrounding lymph nodes. Differential includes gastritis/duodenitis or ulcerations or underlying mucosal pathology such as neoplasm cannot be excluded. Electronically signed by: Giuseppe Hays MD (05/03/2019 10:59 AM) [facility] [facility] [place]CTATED AND SIGNED BY: GIUSEPPE HAYS MD DATE: 05/03/19 1059 CC: HUDSON BOWERS DO; BURTON GUERRA MD ~ Course & Med Decision Making Course & Med Decision Making Pertinent Labs and Imaging studies reviewed. (See chart for details) The CT scan shows wall thickening of the distal stomach and proximal duodenum. This could be duodenitis, ulcers, but neoplasm cannot be excluded. I'll give the patient 40 mg Protonix IV as well as GI cocktail. This did not seem to help with the patient's pain. The patient's labs are unremarkable. Her urinalysis is negative for infection. Her lipase is normal. I have advised the patient follow up with her primary care physician for further evaluation and a GI consult for likely EGD. I will discharge the patient with a short course of [place] 5/325 for discomfort. She is stable for discharge at this time. [] Dragon Disclaimer Dragon Disclaimer This electronic medical record was generated, in whole or in part, using a voice recognition dictation system. Departure Departure: Impression: Primary Impression: Epigastric abdominal pain Additional Impression: Abnormal CT of the abdomen Disposition: HOME, SELF-CARE Condition: STABLE Referrals: BURTON GUERRA MD (PCP) Patient Instructions: Abdominal Pain, [id number] Scripts Hydrocodone Bit/Acetaminophen (NORCO 5-325 TABLET) 1 Each Tablet 1 TAB PO PRN Q6HRS PRN for PAIN, #10 TAB 0 Refills Prov: HUDSON BOWERS DO 05/03/19 Problem Qualifiers HUDSON BOWERS DO May 03, 2019 10:13
[2019-05-03 10:21] LABS: BASO % 1 % (0-3); EOS # 0.2 x10^3/uL (0.0-0.7); EOS % 3 % (0-3); HEMATOCRIT 40.9 % (36.0-47.0); HEMOGLOBIN 13.5 g/dL (12.0-15.5); LYMPH # 0.8 x10^3/uL (1.0-4.8); LYMPH % 14 % (24-48); MEAN CORPUSCULAR HEMOGLOBIN 29 pg (25-35); MEAN CORPUSCULAR HGB CONC 33 g/dL (31-37); MEAN CORPUSCULAR VOLUME 88 fL (79-100); MONO # 0.4 x10^3/uL (0.0-1.1); MONO % 7 % (0-9); NEUT # 4.3 x10^3uL (1.8-7.7); NEUT % 75 % (31-73); PLATELET COUNT 242 x10^3/uL (140-400); RED BLOOD COUNT 4.63 x10^6/uL (3.50-5.40); RED CELL DISTRIBUTION WIDTH 14.2 % (11.5-14.5); WHITE BLOOD COUNT 5.8 x10^3/uL (4.0-11.0)
[2019-05-03 10:29] LABS: CALCIUM 8.9 mg/dL (8.5-10.1); CREATININE 0.8 mg/dL (0.6-1.0); GFR 83.5; POTASSIUM 3.8 mmol/L (3.5-5.1)
[2019-05-03 10:35] LABS: ALBUMIN 3.2 g/dL (3.4-5.0); ALBUMIN/GLOBULIN RATIO 0.8 (1.0-1.7); TOTAL BILIRUBIN 0.3 mg/dL (0.2-1.0); TOTAL PROTEIN 7.3 g/dL (6.4-8.2)
--- NOTE | 2019-05-03 11:02 | RAD ---
Examination: CT of the abdomen pelvis without contrast HISTORY: History of right lower quadrant abdominal pain COMPARISON: 05/05/2018 TECHNIQUE: Axial CT images of the abdomen pelvis were performed without contrast. Coronal and sagittal reformats are performed Exposure: One or more of the following individualized dose reduction techniques were utilized for this examination: 1. Automated exposure control 2. Adjustment of the mA and/or kV according to patient size 3. Use of iterative reconstruction technique FINDINGS: Minimal atelectasis left lower lobe of the lung. No evidence of free air identified in the abdomen. The evaluation of the solid organs is limited due to lack of IV contrast. The evaluation of bowel is limited due to lack of oral contrast. The visualized noncontrasted liver, spleen, adrenals grossly appears unremarkable. Gallbladder is mildly distended. The visualized pancreas grossly appears unremarkable. Moderate thickened appearance of the wall of the distal stomach or first part of duodenum identified surrounding inflammatory fat stranding. Multiple enlarged lymph nodes identified just inferior to the stomach with the largest measuring 1.4 cm. The small bowel is nondilated. Feces and gas noted in the colon. Sigmoid colon diverticulosis. Small amount of free fluid identified in the pelvis. Urinary bladder is mildly distended. No evidence of intraluminal system calculi. Sigmoid colon diverticulosis. Moderate degenerative changes lumbar spine. Severe aortic atherosclerosis. Severe atherosclerotic calcifications identified in the proximal bilateral renal arteries. IMPRESSION: 1. Thickened appearance of the mucosal wall of the distal stomach/first part of duodenum with surrounding inflammatory fat stranding and few enlarged surrounding lymph nodes. Differential includes gastritis/duodenitis or ulcerations or underlying mucosal pathology such as neoplasm cannot be excluded. Electronically signed by: Giuseppe Hays MD (05/03/2019 10:59 AM) [facility] [place]
[2019-05-03] MEDS ORDERED: LIDO:MAALOX 1:1 20 ML SINGLE DOSE. PO ONE (11:30)
[2019-05-03] MEDS ORDERED: PANTOPRAZOLE IV 40 MG VIAL. IVP ONE (11:30)
[2019-05-03 11:34] VITALS: BP 159/65
[2019-05-03 11:48] LABS: BILIRUBIN,URINE NEG (NEG); CLARITY,URINE CLEAR; COLOR,URINE YELLOW; GLUCOSE,URINE NEG (NEG)
[2019-05-03 11:49] LABS: BACTERIA,URINE 0 /HPF (0-FEW); NITRITE,URINE NEG (NEG); SQUAMOUS EPITHELIAL CELL,UR MOD /LPF; UROBILINOGEN,URINE 0.2 mg/dL (0.2 mg/dL)
[2019-05-03] MEDS ORDERED: HYDR-3165 PO (12:11)
[2019-05-03] MEDS ORDERED: HYDROcodone/APAP 5/325MG 1 TAB TABLET PO ONE (12:15)
== END 2019-05-03 12:33 | disposition home or self-care (01) ==
LOC: ER 09:50
DX: R10.13 Epigastric pain (principal); R10.31 Right lower quadrant pain; R93.5 Abnormal findings on diagnostic imaging of other abdominal regions, including retroperitoneum; I10 Essential (primary) hypertension; F17.210 Nicotine dependence, cigarettes, uncomplicated; Z90.49 Acquired absence of other specified parts of digestive tract; Z90.710 Acquired absence of both cervix and uterus; Z88.0 Allergy status to penicillin; Z88.1 Allergy status to other antibiotic agents; Z88.8 Allergy status to other drugs, medicaments and biological substances
CPT/HCPCS: 36415; 74176; 80053; 81001; 83690; 85025; 96374; 99284; C9113

== ENCOUNTER → 2019-07-20 | Outpatient (CLI) | payer MEDICARE, OTHER ==
[~2019-07-20] MED LIST changes: +AMLO-186 PO; -AMLO5TAB10 PO; -ASPI-612 PO; +ASPI-889 PO; +HYDR-3165 PO; -PANT40TA5 PO; +PANT40TA6 PO
--- NOTE | 2019-07-20 12:07 | RAD ---
CT Abdomen and Pelvis without contrast History: Dysuria, cystitis Technique: Noncontrast CT imaging was performed of the abdomen and pelvis. Multiplanar images are reviewed. Exposure: One or more of the following individualized dose reduction techniques were utilized for this examination: 1. Automated exposure control 2. Adjustment of the mA and/or kV according to patient size 3. Use of iterative reconstruction technique. Comparison: 05/03/2019; 05/19/2011 Findings: There is no hydronephrosis or renal calculus. No new proximal ureteral calculus is identified. There are again phleboliths in the pelvis bilaterally and difficult to visualize the distal ureters in their entirety. There is again mitral annular calcification.Accurate evaluation of abdominal visceral organs is limited without intravenous contrast. There is no obvious abnormality of the spleen, liver, or pancreas. There is again visualization of the pancreatic duct more proximally although similar compared with older exam. Gallbladder is present without obvious intraluminal abnormality by CT. There is again some fullness of the left adrenal gland similar to older exam. Accurate evaluation of bowel is limited without oral contrast. There is no significant free air, free fluid, bowel dilatation. There is again gastric wall prominence, again adjacent hazy change of the fat just inferiorly also with some interspersed nodes in this region. Largest node on the left in this region measures about 1.1 cm short axis dimension, on the right about 1.1 cm short axis dimension fairly similar. There is again sigmoid and descending colonic diverticulosis associated with significant adjacent inflammatory change. There is prominent calcified plaque abdominal aorta and branches, likely significant stenosis of the left common iliac artery and also of the left proximal renal artery and near the origin of the celiac artery. There is multilevel thoracolumbar degenerative disc disease and facet degenerative change. There is degree of lateral recess stenosis most notable L2-3 through L4-5. Impression: 1. There is no hydronephrosis or renal calculus. There is no calculus in the visualized ureters although difficult to visualize more distally in their entirety and there are phleboliths present. 2. There is again gastric wall thickening and some adjacent hazy change of adjacent inferior mesenteric fat with interspersed enlarged nodes. Malignancy is again in the differential possibilities. Other consideration would be sequela of gastritis although malignancy should be excluded if not already performed given the adjacent giacomo disease.There is colonic diverticulosis. 3. There is prominent plaque of the abdominal aorta and branches, more significant stenosis of the left common iliac artery, proximal left renal artery, and at the ostium of the celiac artery. 4. There is colonic diverticulosis. Electronically signed by: Abdirahman Talley MD (07/20/2019 12:03 PM) [id number]
== END ==
LOC: CT 11:02
PROVIDERS: ATTEND Family Medicine
DX: K57.30 Diverticulosis of large intestine without perforation or abscess without bleeding (principal); N30.01 Acute cystitis with hematuria; M51.35 Other intervertebral disc degeneration, thoracolumbar region; M48.05 Spinal stenosis, thoracolumbar region; I87.8 Other specified disorders of veins; R59.9 Enlarged lymph nodes, unspecified; K29.70 Gastritis, unspecified, without bleeding; I77.1 Stricture of artery
CPT/HCPCS: 74176

== ENCOUNTER 2019-07-29 09:51 | Observation (INO) | payer OTHER ==
[~2019-07-29] VITALS: Ht 165.1 cm; Wt 71.4 kg
[~2019-07-29 09:51] MED LIST changes: -AMLO-186 PO; +AMLO5TAB10 PO; +ASPI-612 PO; -ASPI-889 PO; +PANT40TA5 PO; -PANT40TA6 PO
--- NOTE | 2019-07-29 10:36 | EKG ---
[address] [address] Test Date: 2019-07-29 Test Time: 10:32:55 Pat Name: KASSANDRA ORDONEZ Department: Room: Gender: F [employer]: : 1940 Requested By: MELO LINCOLN Order Number: [id number] Reading MD: Sdaiq Aguilar Measurements Intervals Rodeo Rate: 78 P: 59 CT: 134 QRS: 75 QRSD: 110 T: 63 QT: 406 QTc: 467 Interpretive Statements SINUS RHYTHM LEFT ATRIAL ABNORMALITY INCOMPLETE RIGHT BUNDLE BRANCH BLOCK Electronically Signed On 07-29-2019 13:41:08 CDT by Sadiq Aguilar
--- NOTE | 2019-07-29 10:36 | RAD ---
EXAM: Chest, single view. HISTORY: Pain. COMPARISON: None. FINDINGS: A frontal view of the chest is obtained. There is no infiltrate, pleural effusion or pneumothorax. There is a prominent cardiac silhouette, likely accentuated due to portable technique. IMPRESSION: No acute pulmonary finding. Electronically signed by: Nataly Moise MD (07/29/2019 10:34 AM) [id number]
[2019-07-29 10:51] LABS: BASO % 1 % (0-3); EOS # 0.1 x10^3/uL (0.0-0.7); EOS % 3 % (0-3); HEMATOCRIT 39.7 % (36.0-47.0); HEMOGLOBIN 13.2 g/dL (12.0-15.5); LYMPH # 0.6 x10^3/uL (1.0-4.8); LYMPH % 13 % (24-48); MEAN CORPUSCULAR HEMOGLOBIN 29 pg (25-35); MEAN CORPUSCULAR HGB CONC 33 g/dL (31-37); MEAN CORPUSCULAR VOLUME 88 fL (79-100); MONO # 0.4 x10^3/uL (0.0-1.1); MONO % 8 % (0-9); NEUT # 3.4 x10^3uL (1.8-7.7); NEUT % 75 % (31-73); PLATELET COUNT 248 x10^3/uL (140-400); RED BLOOD COUNT 4.52 x10^6/uL (3.50-5.40); RED CELL DISTRIBUTION WIDTH 13.6 % (11.5-14.5); WHITE BLOOD COUNT 4.5 x10^3/uL (4.0-11.0)
--- NOTE | 2019-07-29 10:55 | PHYS DOC ---
Past History Past Medical History: CVA, Hypertension, Seizure Past Surgical History: Appendectomy, Hysterectomy, Other Additional Past Surgical Histo: thyroid surgery Smoking: Cigarettes Alcohol Use: None Drug Use: Marijuana General Adult EDM: Chief Complaint: WEAKNESS/GENERALIZED HPI: HPI: 78-year-old female past medical history significant for CVA and hypertension, is to the ED with complaints of right lower quadrant abdominal pain, gradual onset diffuse headache, weakness and anorexia for the past 4 days. Patient also reports productive cough. No h/o trauma/falls. No known or confirmed covid exposure. Review of systems: Denies associated fever, chills, dyspnea, unilateral leg swelling, hemoptysis, sore throat, chest pain pressure heaviness or tightness, nausea, vomiting, diarrhea, dysuria, hematuria, flank pain or neurologic deficits. Allergies: Allergies: Allergies Coded Allergies Type Severity Reaction Last Updated Verified Iodine and Iodide Containing Produc Allergy Severe 06/25/17 Yes Penicillins Allergy Severe Hives 06/25/17 Yes lisinopril Allergy Severe Swelling 06/25/17 Yes azithromycin Allergy Intermediate 06/25/17 Yes meperidine Allergy Intermediate 06/25/17 Yes metoclopramide Allergy Intermediate 06/25/17 Yes nitrofurantoin Allergy Intermediate 06/25/17 Yes Physical Exam: PE: Constitutional: Well developed, well nourished, no acute distress, non-toxic appearance. [] HENT: Normocephalic, atraumatic, bilateral external ears normal, oropharynx moist, no oral exudates, nose normal. [] Eyes: EOMI, conjunctiva normal, no discharge. [] Neck: Normal range of motion, no tenderness, supple, no stridor. [] Cardiovascular:Heart rate regular rhythm, no murmur [] Lungs & Thorax: Bilateral breath sounds clear to auscultation [] Abdomen: Bowel sounds normal, soft, no tenderness, no masses, no pulsatile masses. [] Skin: Warm, dry, no erythema, no rash. [] Back: No tenderness, no CVA tenderness. [] Extremities: No tenderness, no cyanosis, no clubbing, ROM intact, no edema. [] Neurologic: Alert and oriented X 3, normal motor function, normal sensory function, no focal deficits noted. [] Psychologic: Affect normal, judgement normal, mood normal. [] Current Patient Data: Vital Signs: Vital Signs Date Time Temp Pulse Resp B/P (MAP) Pulse Ox O2 Delivery O2 Flow Rate FiO2 07/29/19 10:07 98.0 80 18 192/79 (116) 97 Room Air EKG: EKG: Sinus rhythm at 78 bpm, no axis deviation, normal intervals, T wave inversion V2, no ST elevations or ST depressions Radiology/Procedures: Radiology/Procedures: IMAGING REPORT Signed PATIENT: KASSANDRA ORDONEZCOUNT: [id number] : 1940 LOCATION: ER AGE: 78 SEX: F EXAM STATUS: REG ER ORD. PHYSICIAN: MELO LINCOLN DO REASON: headache PROCEDURE: CT HEAD WO CONTRAST CT HEAD INDICATION: Headache COMPARISON: 05/10/2018 Exposure: One or more of the following individualized dose reduction techniques were utilized for this examination: 1. Automated exposure control 2. Adjustment of the mA and/or kV according to patient size 3. Use of iterative reconstruction technique TECHNIQUE: 5 mm contiguous axial images were obtained from the skull base to the vertex in both bone and soft tissue algorithm. FINDINGS: Mild bilateral periventricular white matter hypodensities likely chronic small vessel ischemic disease. No evidence of acute intracranial hemorrhage. No extra-axial fluid collections. No mass effect or midline shift. Ventricular size is appropriate. Basal cisterns are patent. No fractures identified.Guzman-white differentiation is preserved.Globes and orbits are within normal limits. Paranasal sinuses and mastoid air cells are clear. IMPRESSION: No acute intracranial findings. Electronically signed by: Giuseppe Hays MD (07/29/2019 11:33 AM) [id number] DICTATED AND SIGNED BY: GIUSEPPE HAYS MD DATE: 07/29/19 1133 IMAGING REPORT Signed PATIENT: KASSANDRA ORDONEZ MACCOUNT: [id number] : 1940 LOCATION: ER AGE: 78 SEX: F EXAM STATUS: REG ER ORD. PHYSICIAN: MELO LINCOLN DO REASON: abd pain PROCEDURE: PORTABLE CHEST 1V EXAM: Chest, single view. HISTORY: Pain. COMPARISON: None. FINDINGS: A frontal view of the chest is obtained. There is no infiltrate, pleural effusion or pneumothorax. There is a prominent cardiac silhouette, likely accentuated due to portable technique. IMPRESSION: No acute pulmonary finding. Electronically signed by: Nataly Mancilla MD (07/29/2019 10:34 AM) [id number] DICTATED AND SIGNED BY: NATALY MANCILLA MD DATE: 07/29/19 1034 CC: BURTON GUERRA MD; MELO LINCOLN DO ~ IMAGING REPORT Signed PATIENT: KASSANDRA ORDONEZ MACCOUNT: [id number] : 1940 LOCATION: ER AGE: 78 SEX: F EXAM STATUS: REG ER ORD. PHYSICIAN: MELO LINCOLN DO REASON: SEVERE ABDOMEN PAIN PROCEDURE: CT ABDOMEN PELVIS WO CONTRAST PQRS Compliance Statement: One or more of the following individualized dose reduction techniques were utilized for this examination: 1. Automated exposure control 2. Adjustment of the mA and/or kV according to patient size 3. Use of iterative reconstruction technique CT abdomen/pelvis without contrast 07/29/2019 11:09 AM INDICATION: Severe abdominal pain COMPARISON: CT abdomen/pelvis 07/20/2019 TECHNIQUE: Multiple axial CT images of the abdomen and pelvis were obtained without intravenous contrast. Coronal and sagittal reformats are provided. FINDINGS: There is minimal bibasilar subsegmental atelectasis. Heart size is within normal limits. Coarse mitral calcifications are identified. Evaluation of the solid abdominal viscera is limited by lack of intravenous contrast. Liver, spleen, bilateral adrenal glands and gallbladder are normal in appearance. Ill-definition of the head of the pancreas may be secondary to adjacent duodenal inflammation. There is mild dilatation of the main pancreatic duct measuring up to 4 mm, stable from the prior examination. No definite obstructive mass is visualized on noncontrast examination. Dense calcified atheromatous plaque is identified involving the abdominal aorta and mesenteric vasculature. Findings are limited without intravenous contrast. The kidneys are relatively symmetric in appearance. There is no suspicious renal mass within the limitations of a noncontrast examination. There is no hydronephrosis. There are no calculi within the kidneys, ureters or urinary bladder. Extensive wall thickening is identified at the gastric antrum with ill-definition of the adjacent perigastric fat. Mesenteric lymph nodes are present measuring up to 1.0 cm, stable from the prior examination. Ill-definition of the fat adjacent to the duodenum could reflect duodenitis. Urinary bladder is within normal limits given degree of distention. No suspicious pelvic mass is identified. No suspicious osseous abnormality. IMPRESSION: 1. Extensive wall thickening involving the gastric antrum with associated perigastric and plantar changes. Inflammation appears to extend into the first portion of the duodenum. Findings may represent gastroduodenitis. Correlate with endoscopic findings as underlying gastric malignancy could have similar appearance. Adjacent mesenteric lymph nodes could be reactive or metastatic, stable. PET/CT could be of benefit. 2. Mild prominence of the main pancreatic duct and common bile duct. Pancreatic head is ill-defined, although evaluation is limited by lack of intravenous contrast. Correlate with pancreatic enzymes. Attention on follow-up exams is recommended. Electronically signed by: Ekaterina Adamson MD (07/29/2019 11:57 AM) [id number] Impressions: Concern for UTI and generalized weakness, failure to thrive. Patient was treated with fosfomycin in the ED. Patient reports she felt too weak to go sushila e. Will admit for further medical management, consider PT/OT. Patient stable at time of admission and agrees with the above plan. COVID-19 CRITERIA: The patient was evaluated during the global COVID-19 pandemic, and that diagnosis was suspected/considered upon their initial presentation. Their evaluation, treatment and testing was consistent with current guidelines for patients who present with complaints or symptoms that may be related to [id number] per discretion of admitting physician. Course & Med Decision Making: Course & Med Decision Making Pertinent Labs and Imaging studies reviewed. (See chart for details) [] Dragon Disclaimer: Dragon Disclaimer: This electronic medical record was generated, in whole or in part, using a voice recognition dictation system. Departure Departure: Impression: Primary Impression: UTI (urinary tract infection) Additional Impression: Generalized weakness Disposition: ADMITTED INPATIENT Admitting Physician: Armen Jeffries Condition: STABLE Referrals: BURTON GUERRA MD (PCP) MELO LINCOLN DO July 29, 2019 10:55
[2019-07-29 11:04] LABS: CALCIUM 9.5 mg/dL (8.5-10.1); GFR 64.6
[2019-07-29 11:16] LABS: ALBUMIN 3.3 g/dL (3.4-5.0); ALBUMIN/GLOBULIN RATIO 0.8 (1.0-1.7); TOTAL BILIRUBIN 0.2 mg/dL (0.2-1.0); TOTAL PROTEIN 7.4 g/dL (6.4-8.2)
--- NOTE | 2019-07-29 11:36 | RAD ---
CT HEAD INDICATION: Headache COMPARISON: 05/10/2018 Exposure: One or more of the following individualized dose reduction techniques were utilized for this examination: 1. Automated exposure control 2. Adjustment of the mA and/or kV according to patient size 3. Use of iterative reconstruction technique TECHNIQUE: 5 mm contiguous axial images were obtained from the skull base to the vertex in both bone and soft tissue algorithm. FINDINGS: Mild bilateral periventricular white matter hypodensities likely chronic small vessel ischemic disease. No evidence of acute intracranial hemorrhage. No extra-axial fluid collections. No mass effect or midline shift. Ventricular size is appropriate. Basal cisterns are patent. No fractures identified.Guzman-white differentiation is preserved.Globes and orbits are within normal limits. Paranasal sinuses and mastoid air cells are clear. IMPRESSION: No acute intracranial findings. Electronically signed by: Giuseppe Hays MD (07/29/2019 11:33 AM) [id number]
[2019-07-29 11:45] LABS: BACTERIA,URINE 0 /HPF (0-FEW); BILIRUBIN,URINE NEG (NEG); CLARITY,URINE CLEAR; COLOR,URINE COLORLESS; GLUCOSE,URINE NEG (NEG); NITRITE,URINE NEG (NEG); RBC,URINE 0 /HPF (0-2); SQUAMOUS EPITHELIAL CELL,UR OCC /LPF; UROBILINOGEN,URINE 0.2 mg/dL (0.2 mg/dL); WBC,URINE 0 /HPF (0-4)
--- NOTE | 2019-07-29 12:00 | RAD ---
PQRS Compliance Statement: One or more of the following individualized dose reduction techniques were utilized for this examination: 1. Automated exposure control 2. Adjustment of the mA and/or kV according to patient size 3. Use of iterative reconstruction technique CT abdomen/pelvis without contrast 07/29/2019 11:09 AM INDICATION: Severe abdominal pain COMPARISON: CT abdomen/pelvis 07/20/2019 TECHNIQUE: Multiple axial CT images of the abdomen and pelvis were obtained without intravenous contrast. Coronal and sagittal reformats are provided. FINDINGS: There is minimal bibasilar subsegmental atelectasis. Heart size is within normal limits. Coarse mitral calcifications are identified. Evaluation of the solid abdominal viscera is limited by lack of intravenous contrast. Liver, spleen, bilateral adrenal glands and gallbladder are normal in appearance. Ill-definition of the head of the pancreas may be secondary to adjacent duodenal inflammation. There is mild dilatation of the main pancreatic duct measuring up to 4 mm, stable from the prior examination. No definite obstructive mass is visualized on noncontrast examination. Dense calcified atheromatous plaque is identified involving the abdominal aorta and mesenteric vasculature. Findings are limited without intravenous contrast. The kidneys are relatively symmetric in appearance. There is no suspicious renal mass within the limitations of a noncontrast examination. There is no hydronephrosis. There are no calculi within the kidneys, ureters or urinary bladder. Extensive wall thickening is identified at the gastric antrum with ill-definition of the adjacent perigastric fat. Mesenteric lymph nodes are present measuring up to 1.0 cm, stable from the prior examination. Ill-definition of the fat adjacent to the duodenum could reflect duodenitis. Urinary bladder is within normal limits given degree of distention. No suspicious pelvic mass is identified. No suspicious osseous abnormality. IMPRESSION: 1. Extensive wall thickening involving the gastric antrum with associated perigastric and plantar changes. Inflammation appears to extend into the first portion of the duodenum. Findings may represent gastroduodenitis. Correlate with endoscopic findings as underlying gastric malignancy could have similar appearance. Adjacent mesenteric lymph nodes could be reactive or metastatic, stable. PET/CT could be of benefit. 2. Mild prominence of the main pancreatic duct and common bile duct. Pancreatic head is ill-defined, although evaluation is limited by lack of intravenous contrast. Correlate with pancreatic enzymes. Attention on follow-up exams is recommended. Electronically signed by: Ekaterina Adamson MD (07/29/2019 11:57 AM) [id number]
[2019-07-29 12:32] LABS: BACTERIA,URINE MANY /HPF (0-FEW); BILIRUBIN,URINE NEG (NEG); CLARITY,URINE HAZY; COLOR,URINE YELLOW; GLUCOSE,URINE NEG (NEG); NITRITE,URINE NEG (NEG); SQUAMOUS EPITHELIAL CELL,UR MOD /LPF
[2019-07-29] MEDS ORDERED: FOSFOMYCIN TROMETHAMINE 3 GM PACKET PO ONE (12:45)
[2019-07-29 14:07] VITALS: BP 195/79
[2019-07-29 14:11] VITALS: BP 195/79
[2019-07-29] MEDS ORDERED: ZOLPIDEM 5 MG TABLET. PO PRN (15:15)
[2019-07-29] MEDS ORDERED: ONDANSETRON PF 4 MG/2 ML VIAL. IVP PRN (15:30)
[2019-07-29] MEDS ORDERED: PANTOPRAZOLE 40 MG TABLET. PO ONE (15:45)
[2019-07-29] MEDS: IV NORMAL SALINE 1,000ML 1,000 ML IV SCH (16:20)
--- NOTE | 2019-07-29 17:10 | HP ---
ADMIT DATE: 07/29/2019 HISTORY OF PRESENT ILLNESS: The patient is an 78-year-old -[place] female patient who came to the Emergency Room complaining of generalized weakness, pain in the right lower quadrant that is gradual onset. She also complained of diffuse headache, weakness, anorexia for the last 4 days. She also reported productive cough. On questioning her further, she stated that she has dysuria and frequency, but denied any hematuria, denied any chills, rigors or fever. She was extensively investigated in the Emergency Room. Her lab work showed her white cell count to be normal. Her chemistry was mostly unremarkable. Urinalysis showed there was large amount of blood, large amount of leukocyte esterase. There are 11-20 wbc's and many bacteria. Her chest x-ray was unremarkable. CT scan of the head also showed no acute intracranial finding and CT scan of the abdomen and pelvis without contrast, basically showed that the patient has extensive wall thickening involving the gastric antrum with associated perigastric and plantar changes, inflammation appears to extend into the first portion of the duodenum, finding represents gastroduodenitis. The radiologist recommended correlating with endoscopic finding as underlying gastric malignancy could be perhaps similar appearance. Adjacent mesenteric lymph nodes could be reactive or metastatic. She has mild prominence of the main pancreatic duct and common bile duct. Pancreatic duct is ill-defined although evaluation is limited by lack of intravenous contrast. So, the patient was basically admitted with possible urinary tract infection as well as acute gastroduodenitis. PAST MEDICAL HISTORY: Significant for hypertension, multiple TIAs, hypothyroidism and probably COPD. PAST SURGICAL HISTORY: Significant for thyroidectomy, total abdominal hysterectomy, bilateral cataract extraction, tonsillectomy, appendectomy. She underwent esophagogastroduodenoscopy. ALLERGIES: She has multitude of allergies including IODINE and IODINE CONTAINING PRODUCTS, PENICILLIN, AZITHROMYCIN, LISINOPRIL, MEPERIDINE, METOCLOPRAMIDE and NITROFURANTOIN. MEDICATIONS: She is currently on following medications: She is on cyclobenzaprine 10 mg 3 times a day, atorvastatin calcium 10 mg once a day, metoprolol succinate 25 mg once a day, amlodipine 5 mg once a day, aspirin 81 mg once a day, hydrocodone/APAP 5/325 one tablet every 6 hours, Ambien 5 mg at bedtime, furosemide 20 mg daily, and Amitiza 8 mcg twice a day. FAMILY HISTORY: She has one sister who is younger and , probably suicide. Both parents are . She does not know her father very well. Her mother in her 60s. SOCIAL HISTORY: She is , has 2 miscarriages and 5 living children, all healthy. She smokes 5 cigarettes per day, does not drink alcohol, but smokes marijuana. REVIEW OF SYSTEMS: The patient has bilateral cataract extraction. She has also macular degeneration, but denied any glaucoma. Denied any earache, tinnitus or sensorineural deafness. Denied any nosebleeds, stuffy nose or postnasal drip. Denied any sore throat, sore tongue, toothache, hoarseness of voice or difficulty swallowing. Denied any nausea, vomiting, diarrhea or constipation. Denied any hematemesis, melena or hematochezia. Did complain of dysuria, frequency, but denied hematuria. Denied any chest pain, shortness of breath, orthopnea, paroxysmal nocturnal dyspnea. She did complain of cough that is dry. PHYSICAL EXAMINATION: GENERAL: On arrival to the Emergency Room, she looked well and was clearly in no apparent respiratory distress, pale. No jaundice, cyanosis or thyromegaly. No jugular venous distention. No limb edema. VITAL SIGNS: Her heart rate on arrival was 80, blood pressure was 192/79, temperature was 98, respiratory rate was 18 and oxygen saturation was 97%. HEAD, EYES, EARS, NOSE AND THROAT: Showed normocephalic, atraumatic. NECK: Supple. HEART: Showed normal first and second heart sounds. No gallop or murmur. CHEST: Clear to auscultation. No crepitation or rhonchi. ABDOMEN: Distended, soft. Tenderness in the epigastric area and right lower quadrant. There is no guarding or rigidity. No organomegaly. All hernial orifice intact. Bowel sounds normal. NEUROLOGIC: She is awake, alert, responding appropriately. All cranial nerves intact. EXTREMITIES: She moves extremities without difficulty. She ambulates with a walker. LABORATORY DATA: Her lab work on arrival showed a white cell count of 4500, hemoglobin 13, hematocrit 39, MCV 88 and platelet count 248,000. Her serum sodium was 138, potassium 4, chloride 102, bicarbonate 27, anion gap of 9, BUN 10, creatinine 1, estimated GFR was 64 mL per minute. Her glucose was 85, calcium was 9.5. Total bilirubin, AST, ALT, alkaline phosphatase were normal. CK was 86. Total protein was 7.4, albumin 3.3. Lipase was 100. Urinalysis showed the urine was yellow, hazy with a pH of 7, specific gravity of 1.020. The urine was negative for protein, glucose. There was a trace of ketones, large amount of blood, negative for nitrite and large amount of leukocyte esterase, 3-5 rbc's, 11-20 wbc's, and many bacteria. Her chest x-ray showed there is no infiltrate, pleural effusion, or pneumothorax. There is a prominent cardiac silhouette, likely accentuated due to portable technique. The CT scan of the head showed that the patient has mild bilateral periventricular white matter hypodensities, likely chronic small vessel ischemic disease, no evidence of acute intracranial hemorrhage, no axial fluid collection, no mass effect or midline shift, ventricular size appropriate. Basal cisterns are patent. No fracture identified. Guzman-white differentiation is preserved. Globes and orbits are within normal limits. Paranasal sinuses and mucosal mastoid air cells are clear. The patient was treated with DICTATION ENDS HERE JOSE A GUZMÁN MD DR: SUDHEER/sonia JOB#: [id number] / [id number]
[2019-07-29 19:22] VITALS: BP 137/83
[2019-07-29] MEDS: HYDROcodone/APAP 5/325MG 1 TAB TABLET PO PRN (19:27)
[2019-07-29] MEDS ORDERED: ATORVASTATIN CALCIUM 10 MG TABLET. PO SCH (21:00)
[2019-07-29] MEDS: CYCLOBENZAPRINE 10 MG TABLET. PO SCH (21:26)
[2019-07-29 21:47] VITALS: BP 167/74
[2019-07-30 02:25] VITALS: BP 172/77
[2019-07-30] MEDS: IV NORMAL SALINE 1,000ML 1,000 ML IV SCH (04:34)
[2019-07-30 05:30] VITALS: BP 176/75
[2019-07-30 06:48] LABS: CALCIUM 8.7 mg/dL (8.5-10.1); GFR 64.6; POTASSIUM 4.2 mmol/L (3.5-5.1)
[2019-07-30] MEDS ORDERED: PANTOPRAZOLE 40 MG TABLET. PO SCH (07:30)
[2019-07-30] MEDS ORDERED: LUBIPROSTONE 24 MCG CAPSULE PO SCH (08:00)
[2019-07-30] MEDS ORDERED: METOPROLOL SUCC 24HR ER 25 MG TAB.ER.24H. PO SCH (09:00)
[2019-07-30] MEDS ORDERED: amLODIPine BESYLATE 5 MG TABLET PO SCH (09:00)
[2019-07-30] MEDS ORDERED: ASPIRIN ENTERIC COATED 81 MG TABLET.DR. PO SCH (09:00)
[2019-07-30 10:59] VITALS: BP 158/76
[2019-07-30 11:05] VITALS: BP 105/71
[2019-07-30 11:52] LABS: LACTATE DEHYDROGENASE 167 U/L (81-234); LIPASE 80 U/L (73-393)
[2019-07-30] MEDS: CYCLOBENZAPRINE 10 MG TABLET. PO SCH ×2 (12:28→14:00)
[2019-07-30] MEDS: HYDROcodone/APAP 5/325MG 1 TAB TABLET PO PRN (12:29)
[2019-07-30 15:32] VITALS: BP 156/70
[2019-08-01 13:07] LABS: CEA 8.6 ng/mL (0.0-4.7)
--- NOTE | 2019-08-01 14:33 | DS ---
DATE OF DISCHARGE: 07/30/2019 HOSPITAL COURSE: The patient is an 78-year-old -[place] female patient who was admitted to the Emergency Room with a complaint of generalized weakness, pain in her right lower quadrant that is gradual. She also complained of diffuse headache, weakness, anorexia for the last 4 days. She also reported productive cough. On questioning her further, she stated that she has dysuria, frequency, but denied any hematuria. Denied any chills, rigors or fever. She was extensively investigated in the Emergency Room. Her lab work showed that her white cell count is normal. Her chemistry was mostly unremarkable. Urinalysis showed that she has large amount of blood, large amount of leukocyte esterase and there are only 11-20 wbc's, and many bacteria. Her chest x-ray was unremarkable. CT scan of the head also showed no acute intracranial finding. CT scan of the abdomen and pelvis without contrast basically showed that the patient has extensive wall thickening involving the gastric antrum with associated perigastric plantar changes. Inflammation appears to extend into the first portion of the duodenum, finding represents gastroduodenitis. The radiologist recommended correlating with endoscopic findings as underlying gastric malignancy could be perhaps have the similar appearance. Adjacent mesenteric lymph nodes could be reactive metastatic. There has been prominence of the main pancreatic duct and common bile duct. Pancreatic duct is ill-defined although evaluation is limited by lack of intravenous contrast. She has received antibiotic in the Emergency Room and was admitted for pain management and ultimately to be transferred to [facility]; however, the family requested transferring her to [facility] and she was basically accepted there for further evaluation of possible pancreatic tumor and/or gastric malignancy. PHYSICAL EXAMINATION: GENERAL: On the day of discharge, she looked well and was clearly in no apparent respiratory distress. No pallor, jaundice, cyanosis or thyromegaly. No jugular venous distention. No limb edema. VITAL SIGNS: Her heart rate was 84, blood pressure was 156/70, temperature was 98.2, respiratory rate 22, and oxygen saturation was 95%. HEAD, EYES, EARS, NOSE AND THROAT: Showed normocephalic, atraumatic. NECK: Supple. HEART: Showed normal first and second heart sounds. No gallop, rub or murmur. CHEST: Clear to auscultation. No crepitation or rhonchi. ABDOMEN: Distended with tenderness mostly in the epigastric right upper and right lower quadrant. No guarding or rigidity. No organomegaly. Her hernial orifice intact. Bowel sounds normal. NEUROLOGIC: She was awake, alert, responding appropriately. All cranial nerves intact. EXTREMITIES: She moves extremities without difficulty. LABORATORY DATA: Showed a white cell count of 4500, hemoglobin 13, hematocrit 39, MCV 88 and platelet count 248,000. Serum sodium was 140, potassium 4.2, chloride 104, bicarbonate 28, anion gap of 8, BUN 10, creatinine 1, estimated GFR was 64 mL per minute. Her glucose was 79, calcium was 8.7. Her total bilirubin, AST, ALT, alkaline phosphatase were normal. Her total protein was 7.4, albumin 3.3. Her lipase was 100. Her CA 19-9 antigen was only 9. Her carcinoembryonic antigen was 8.6, which is high. The normal range is 0-4.7 ng/mL. TSH was normal at 1.274. DISCHARGE MEDICATIONS: The patient was discharged and transferred to [facility] to continue on all her home medications including cyclobenzaprine 10 mg 3 times a day, atorvastatin calcium 10 mg at bedtime, metoprolol succinate 25 mg once a day, amlodipine besylate 5 mg once a day, aspirin 81 mg once a day, hydrocodone/APAP 5/325 one tablet every 6 hours, Ambien 5 mg at bedtime, furosemide 20 mg p.o. daily and Amitiza 8 mcg twice a day. FINAL DISCHARGE DIAGNOSES: Questionable pancreatic cancer versus gastric malignancy. OTHER MEDICAL PROBLEMS: Include: A. Hypertension. B. Multiple TIAs. C. Hypothyroidism. D. COPD. JOSE A GUZMÁN MD DR: SUDHEER/sonia JOB#: [id number] / [id number]
== END 2019-07-30 16:00 | disposition short-term general hospital (02) ==
LOC: ER 09:51 → INTOOBSV 13:39 → 1 SOUTH 13:39
PROVIDERS: ADMIT Internal Medicine; ATTEND Internal Medicine
DX: K29.90 Gastroduodenitis, unspecified, without bleeding (principal); N39.0 Urinary tract infection, site not specified; E89.0 Postprocedural hypothyroidism; F17.210 Nicotine dependence, cigarettes, uncomplicated; I10 Essential (primary) hypertension; J44.9 Chronic obstructive pulmonary disease, unspecified; Z86.73 Personal history of transient ischemic attack (TIA), and cerebral infarction without residual deficits; Z90.49 Acquired absence of other specified parts of digestive tract; Z90.710 Acquired absence of both cervix and uterus
CPT/HCPCS: 36415; 70450; 71045; 74176; 80048; 80053; 81001; 82378; 82550; 83615; 83690; 83880; 84443; 84484; 85025; 86140; 86301; 87086; 93005; 96374; 96375; 96376; 99285; G0378; G0379; J2405; J3010; J7030

== ENCOUNTER 2020-01-12 13:50 | Emergency (ER) | payer OTHER ==
[~2020-01-12] VITALS: Ht 165.1 cm; Wt 67.0 kg
[~2020-01-12 13:50] MED LIST changes: +AMLO-186 PO; -AMLO5TAB10 PO; -ASPI-612 PO; +ASPI-889 PO; -PANT40TA5 PO; +PANT40TA6 PO
--- NOTE | 2020-01-12 14:26 | PHYS DOC ---
Past History Past Medical History: CVA, Hypertension, Seizure (SOCORRO MARVIN APRN) Past Surgical History: Appendectomy, Hysterectomy, Other Additional Past Surgical Histo: thyroid surgery (SOCORRO MARVIN APRN) Smoking: Cigarettes Alcohol Use: None Drug Use: Marijuana (SOCORRO MARVIN APRN) Adult General Chief Complaint Chief Complaint: ABDOMINAL PAIN [facility] HPI Patient is a 79 yr old female with history of hypertension, seizures, who presents to the ED today complaining of 8-1/2 right lower abdominal pain that b rosy 3 days ago. Patient denies anything specifically exacerbating or relieving the pain. Reports the pain as sharp and constant. Denies any nausea, vomiting, diarrhea. Denies any fever. She has previous CVA and has slurred speech at baseline. (SOCORRO MARVIN APRN) Review of Systems Review of Systems Constitutional: Denies fever or chills [] Eyes: Denies change in visual acuity, redness, or eye pain [] HENT: Denies nasal congestion or sore throat [] Respiratory: Denies cough or shortness of breath [] Cardiovascular: No additional information not addressed in HPI [] GI: Reports right lower quadrant abdominal pain, denies nausea, vomiting, bloody stools or diarrhea [] : Denies dysuria or hematuria [] Musculoskeletal: Denies back pain or joint pain [] Integument: Denies rash or skin lesions [] Neurologic: Denies headache, focal weakness or sensory changes [] All other systems were reviewed and found to be within normal limits, except as documented in this note. (SOCORRO MARVIN APRN) Allergies Allergies Allergies Coded Allergies Type Severity Reaction Last Updated Verified Iodine and Iodide Containing Produc Allergy Severe 06/25/17 Yes Penicillins Allergy Severe Hives 06/25/17 Yes lisinopril Allergy Severe Swelling 06/25/17 Yes azithromycin Allergy Intermediate 06/25/17 Yes meperidine Allergy Intermediate 06/25/17 Yes metoclopramide Allergy Intermediate 06/25/17 Yes nitrofurantoin Allergy Intermediate 06/25/17 Yes (SOCORRO MARVIN APRN) Physical Exam Physical Exam Constitutional: Well developed, well nourished, no acute distress, non-toxic appearance. [] HENT: Normocephalic, atraumatic, bilateral external ears normal, oropharynx moist, no oral exudates, nose normal. [] Eyes: PERRLA, EOMI, conjunctiva normal, no discharge. [] Neck: Normal range of motion, no tenderness, supple, no stridor. [] Cardiovascular:Heart rate regular rhythm, no murmur [] Lungs & Thorax: Bilateral breath sounds clear to auscultation [] Abdomen: Bowel sounds normal, soft, diffuse tenderness on palpation of the left lower quadrant as well as the right lower quadrant, slight right upper quadrant tenderness with negative Gorman sign, negative psoas sign, negative obturator sign, no guarding, no masses, no pulsatile masses. [] Skin: Warm, dry, no erythema, no rash. [] Back: No tenderness, no CVA tenderness. [] Extremities: No tenderness, no cyanosis, no clubbing, ROM intact, no edema. [] Neurologic: Alert and oriented X 3, normal motor function, normal sensory function, no focal deficits noted. Chronic slurred speech from previous CVA Psychologic: Affect normal, judgement normal, mood normal. [] (SOCORRO MARVIN APRN) EKG EKG [] (SOCORRO MARVIN APRN) Radiology/Procedures Radiology/Procedures []PROCEDURE: CT ABDOMEN PELVIS WO CONTRAST Exam: CT of abdomen and pelvis without contrast INDICATION: Abdominal pain TECHNIQUE: Sequential axial images through the abdomen and pelvis obtained without IV contrast. Sagittal and coronal reformatted images were reconstructed from the axial data and reviewed. Comparisons: 07/29/2019 FINDINGS: Heart size is at the upper limits of normal. No pericardial effusion. Is lung bases are clear. No pleural effusion. Evaluation of the solid abdominal organs is limited secondary to noncontrast technique and extensive respiratory motion. Liver, spleen, pancreas, gallbladder and adrenals are unremarkable. No perinephric inflammation or hydronephrosis. No renal or ureteral calculi are identified. Bladder is decompressed not well evaluated. Uterus is absent. No abnormal adnexal mass. Diverticulosis is noted in the sigmoid colon without evidence of acute diverticulitis. Remainder of the large and small bowel are unremarkable. Appendix is not identified. No free intra-abdominal air or fluid. No obstruction. Abdominal aorta has a normal course and caliber. No enlarged intra-abdominal lymph nodes are identified. No suspicious osseous lesions or acute fractures. IMPRESSION: 1. No acute processes identified within the abdomen or pelvis. 2. Diverticulosis without evidence of acute diverticulitis. Exposure: One or more of the following in the visualized dose reduction techniques were utilized for this examination: 1. Automated exposure control 2. Adjustment of the MA and/or KV according to patient size 3. Use of iterative of reconstructive technique Electronically signed by: Yong Hart MD (01/12/2020 3:05 PM) [facility] DICTATED AND SIGNED BY: YONG HART MD DATE: 01/12/20 2391 CC: [facility]; SOCORRO MARVIN APRN; BURTON GUERRA MD ~ (SOCORRO MARVIN APRN) Heart Score Risk Factors: Risk Factors: DM, Current or recent (<one month) smoker, HTN, HLP, family history of CAD, obesity. Risk Scores: Risk Factors: DM, Current or recent (<one month) smoker, HTN, HLP, family history of CAD, obesity. (SOCORRO MARVIN APRN) Course & Med Decision Making Course & Med Decision Making Pertinent Labs and Imaging studies reviewed. (See chart for details) This is a 79-year-old female patient presenting to the ED today with right lower quadrant abdominal pain that began 3 days ago. Labs are negative for any acute findings. CBC, CMP, lipase negative for any acute findings. UA noted for dehydration and is contaminated. CT of the abdomen and pelvic was negative for any acute findings noted for diverticulosis no diverticulitis. Patient was given 1 L of IV fluids. She is feeling better. She was discharged with dicyclomine and follow-up with her own PCP. (SOCORRO MARVIN APRN) Dragon Disclaimer Dragon Disclaimer This electronic medical record was generated, in whole or in part, using a voice recognition dictation system. (SOCORRO MARVIN APRN) Dragon Disclaimer I agree with treatment plan and diagnosis (DARIEN QUINN DO) Departure Departure: Impression: Primary Impression: Diverticulosis Additional Impression: Dehydration Disposition: 01 DC HOME SELF CARE/HOMELESS Condition: STABLE Referrals: BURTON GUERRA MD (PCP) Patient Instructions: Dehydration, Adult, [id number], Diverticulosis Scripts Dicyclomine Hcl (DICYCLOMINE HCL) 20 Mg Tablet 1 TAB PO TID, #30 TAB 1 Refill Prov: SOCORRO MARVIN APRN 01/12/20 Problem Qualifiers SOCORRO MARVIN APRN Jan 12, 2020 14:26 DARIEN QUINN DO Jan 12, 2020 17:39
[2020-01-12] MEDS ORDERED: MORPHINE SULFATE 4 MG/ML DISP.SYRIN. IV ONE (14:30)
[2020-01-12] MEDS ORDERED: ONDANSETRON PF 4 MG/2 ML VIAL. IVP ONE (14:30)
[2020-01-12] MEDS ORDERED: FAMOTIDINE 20 MG/2 ML VIAL IVP ONE (14:30)
[2020-01-12 15:07] LABS: CALCIUM 9.3 mg/dL (8.5-10.1); CREATININE 1.3 mg/dL (0.6-1.0); GFR 47.6; POTASSIUM 4.3 mmol/L (3.5-5.1)
--- NOTE | 2020-01-12 15:08 | RAD ---
Exam: CT of abdomen and pelvis without contrast INDICATION: Abdominal pain TECHNIQUE: Sequential axial images through the abdomen and pelvis obtained without IV contrast. Sagittal and coronal reformatted images were reconstructed from the axial data and reviewed. Comparisons: 07/29/2019 FINDINGS: Heart size is at the upper limits of normal. No pericardial effusion. Is lung bases are clear. No pleural effusion. Evaluation of the solid abdominal organs is limited secondary to noncontrast technique and extensive respiratory motion. Liver, spleen, pancreas, gallbladder and adrenals are unremarkable. No perinephric inflammation or hydronephrosis. No renal or ureteral calculi are identified. Bladder is decompressed not well evaluated. Uterus is absent. No abnormal adnexal mass. Diverticulosis is noted in the sigmoid colon without evidence of acute diverticulitis. Remainder of the large and small bowel are unremarkable. Appendix is not identified. No free intra-abdominal air or fluid. No obstruction. Abdominal aorta has a normal course and caliber. No enlarged intra-abdominal lymph nodes are identified. No suspicious osseous lesions or acute fractures. IMPRESSION: 1. No acute processes identified within the abdomen or pelvis. 2. Diverticulosis without evidence of acute diverticulitis. Exposure: One or more of the following in the visualized dose reduction techniques were utilized for this examination: 1. Automated exposure control 2. Adjustment of the MA and/or KV according to patient size 3. Use of iterative of reconstructive technique Electronically signed by: Yong Martinez MD (01/12/2020 3:05 PM) [facility]
[2020-01-12 15:11] LABS: BASO % 1 % (0-3); EOS # 0.2 x10^3/uL (0.0-0.7); EOS % 4 % (0-3); HEMATOCRIT 34.9 % (36.0-47.0); HEMOGLOBIN 11.4 g/dL (12.0-15.5); LYMPH # 0.7 x10^3/uL (1.0-4.8); LYMPH % 13 % (24-48); MEAN CORPUSCULAR HEMOGLOBIN 29 pg (25-35); MEAN CORPUSCULAR HGB CONC 33 g/dL (31-37); MEAN CORPUSCULAR VOLUME 88 fL (79-100); MONO # 0.5 x10^3/uL (0.0-1.1); MONO % 10 % (0-9); NEUT # 3.8 x10^3uL (1.8-7.7); NEUT % 72 % (31-73); PLATELET COUNT 256 x10^3/uL (140-400); RED BLOOD COUNT 3.96 x10^6/uL (3.50-5.40); WHITE BLOOD COUNT 5.3 x10^3/uL (4.0-11.0)
[2020-01-12 15:13] LABS: ALBUMIN 3.1 g/dL (3.4-5.0); ALBUMIN/GLOBULIN RATIO 0.8 (1.0-1.7); TOTAL BILIRUBIN 0.1 mg/dL (0.2-1.0); TOTAL PROTEIN 6.9 g/dL (6.4-8.2)
[2020-01-12 16:33] LABS: BACTERIA,URINE MOD /HPF (0-FEW); CLARITY,URINE HAZY; COLOR,URINE AMBER; GLUCOSE,URINE NEG (NEG); NITRITE,URINE NEG (NEG); UROBILINOGEN,URINE 0.2 mg/dL (0.2 mg/dL)
[2020-01-12 16:34] LABS: SQUAMOUS EPITHELIAL CELL,UR MANY /LPF
[2020-01-12 16:43] LABS: BARBITURATES NEG (NEG); BENZODIAZEPINES NEG (NEG); CANNABINOIDS POS (NEG); COCAINE NEG (NEG); METHADONE NEG (NEG); OPIATES POS (NEG); PHENCYCLIDINE NEG (NEG)
[2020-01-12 16:44] LABS: AMPHETAMINE/METHAMPHETAMINE NEG (NEG)
[2020-01-12] MEDS ORDERED: DICY20TA3 PO (17:00)
[2020-01-12 17:03] VITALS: BP 145/61
[2020-01-13 09:01] LABS: BILIRUBIN,URINE NEG (NEG)
== END 2020-01-12 17:11 | disposition home or self-care (01) ==
LOC: ER 13:50
DX: K57.30 Diverticulosis of large intestine without perforation or abscess without bleeding (principal); E86.0 Dehydration; R10.31 Right lower quadrant pain; R47.81 Slurred speech; I10 Essential (primary) hypertension; F17.210 Nicotine dependence, cigarettes, uncomplicated; F12.90 Cannabis use, unspecified, uncomplicated; Z86.73 Personal history of transient ischemic attack (TIA), and cerebral infarction without residual deficits; Z90.89 Acquired absence of other organs; Z90.710 Acquired absence of both cervix and uterus; Z98.890 Other specified postprocedural states; Z88.0 Allergy status to penicillin; Z91.040 Latex allergy status; Z88.1 Allergy status to other antibiotic agents; Z88.6 Allergy status to analgesic agent; Z88.8 Allergy status to other drugs, medicaments and biological substances
CPT/HCPCS: 36415; 74176; 80053; 80307; 81001; 85025; 85610; 85730; 87086; 96374; 96375; 99285; J2270; J2405; J3490

== ENCOUNTER 2020-01-26 12:14 | Inpatient (IN) | payer OTHER ==
[~2020-01-26] VITALS: Ht 165.1 cm; Wt 65.7 kg
[~2020-01-26 12:14] MED LIST changes: +DICY20TA3 PO
[2020-01-26] MEDS ORDERED: NEOMY/BACITR/POLYMYXIN OINT PACKET. TP ONE ×2 (12:45→20:00)
--- NOTE | 2020-01-26 12:47 | PHYS DOC ---
Past History Past Medical History: CVA, Hypertension Past Surgical History: Appendectomy, Tonsillectomy, Other Additional Past Surgical Histo: thyroidectomy Smoking: Cigarettes Alcohol Use: None Drug Use: Marijuana General Adult EDM: Chief Complaint: ALTERED MENTAL STATUS HPI: HPI: Patient is a 79 y/o female who presents to the ED per EMS with buttocks pain after falling off a chair earlier today. Pt states that she has been dealing with a sacral ulcer which has been bothering her for a few weeks. Per family pt has been acting "different." Denies any head trauma, LOC, dizziness, or any other symptoms. Reports the chair moved on her and wasn't able to stop her fr om falling. Family concerned patient is more "fatigued" and "weak" than normal. Denies fever/chills. Denies chest pain or dizziness. Denies SOA or cough. Denies dysuria. Review of Systems: Review of Systems: Constitutional: Denies fever or chills Eyes: Denies redness or eye pain HENT: Denies nasal congestion or sore throat Respiratory: Denies cough or shortness of breath Cardiovascular: Denies chest pain or palpitations GI: Denies abdominal pain, nausea, or vomiting : Denies dysuria or hematuria Musculoskeletal: Reports sacral pain, Denies joint pain Integument: Reports sacral ulcer, Denies rash Neurologic: Denies headache, focal weakness or sensory changes; reports generalized weakness Complete systems were reviewed and found to be within normal limits, except as documented in this note. Allergies: Allergies: Allergies Coded Allergies Type Severity Reaction Last Updated Verified Iodine and Iodide Containing Produc Allergy Severe 06/25/17 Yes Penicillins Allergy Severe Hives 06/25/17 Yes lisinopril Allergy Severe Swelling 06/25/17 Yes azithromycin Allergy Intermediate 06/25/17 Yes meperidine Allergy Intermediate 06/25/17 Yes metoclopramide Allergy Intermediate 06/25/17 Yes nitrofurantoin Allergy Intermediate 06/25/17 Yes Physical Exam: PE: Constitutional: Elderly, frail, no acute distress, non-toxic appearance HENT: Normocephalic, atraumatic Eyes: PERRL, EOMI, conjunctiva normal, no discharge, no nystagmus Neck: Normal range of motion, khyphosis noted, no midline tenderness, supple Lungs & Thorax: No respiratory distress, equal chest rise and fall Abdomen: Soft, no tenderness; pelvis stable and nontender Skin: Warm, dry, superficial ulcer located on left side of gluteal cleft Back: No tenderness, no CVA tenderness, sacral tenderness on palpation Extremities: No tenderness, ROM intact, no edema Neurologic: Alert and oriented X 3, normal motor function, normal sensory function, no focal deficits noted Psychologic: Affect normal, judgment normal EKG: EKG: EKG @ 1256, Sinus Rhythm at 64 bpm, no ST elevation; T wave inversions in V1, V2; RBBB, RI 144 ms, QRS 118ms, QTc 478 ms Radiology/Procedures: Radiology/Procedures: EXAM: CT Head without IV contrast INDICATION: Reason: pain s/p fall / Spl. Instructions: / History: TECHNIQUE: Multi-detector row CT images were obtained of the head without the use of IV contrast. All CT scans performed at this facility utilize dose optimization techniques as appropriate to the exam, including the following: Automated exposure control and adjustment of the mA and/or KV according to patient size (this includes techniques or standardized protocols for targeted exams where dose is indication/reason for exam). COMPARISON: None FINDINGS: BRAIN PARENCHYMA: No evidence of acute intraparenchymal hemorrhage or infarct. Mild generalized parenchymal volume loss and white matter low density compatible chronic ischemic microvascular change is present. VENTRICLES & EXTRA-AXIAL SPACES: Ventricles are within normal limits. Basilar cisterns are patent. No pathologic extra-axial fluid collection or mass. ORBITS: Orbital contents are unremarkable. SINUSES: Visualized paranasal sinuses and mastoid air cells are clear. OSSEOUS & SOFT TISSUES: Calvarium and skull base are intact. IMPRESSION: No acute intracranial pathology. EXAM: CT Cervical Spine without IV contrast INDICATION: Reason: pain s/p fall / Spl. Instructions: / History: TECHNIQUE: Multi-detector row CT images were obtained through the cervical spine without the use of IV contrast. Post-processing sagittal and coronal reconstructed images were obtained for interpretation. All CT scans performed at this facility utilize dose optimization techniques as appropriate to the exam, including the following: Automated exposure control and adjustment of the mA and/or KV according to patient size (this includes techniques or standardized protocols for targeted exams where dose is indication/reason for exam). COMPARISON: None FINDINGS: CRANIOCERVICAL JUNCTION: Unremarkable. ALIGNMENT: Alignment is within normal limits. OSSEOUS: No evidence of fracture or bone destruction. DISC SPACES: Multilevel disc degenerative change throughout the cervical spine. FACET JOINTS: Unremarkable. SPINAL CANAL: Mild to moderate diffuse central canal stenosis, most conspicuous at C3-C4 where combination of disc protrusion and ligamentum flavum thickening results in central canal narrowing to an AP diameter of 5 mm. NEUROFORAMINA: Unremarkable. SOFT TISSUES: Included lung apices show bilateral paraseptal pattern emphysematous change, and an enlarged, heterogeneous thyroid gland with multiple calcifications, exerting some mass effect on the trachea. IMPRESSION: Vascular chest taken 1. No acute traumatic findings in the cervical spine. 2. C-spine degenerative changes at the discs bilaterally with resultant moderate central canal stenosis diffusely, most conspicuously at C3-C4. EXAM: CHEST AP ONLY INDICATION: Reason: pain s/p fall / Spl. Instructions: / History: . TECHNIQUE: Single view COMPARISON: None FINDINGS: The heart size is normal. The great vessels appear unremarkable. There is no hilar or mediastinal mass. The lungs are clear. There is no pleural effusion or pneumothorax. There are no significant osseous abnormalities. IMPRESSION: No active cardiopulmonary disease. Sacrum and coccyx 4 views INDICATION: Pain after fall. COMPARISON: Abdomen pelvis CT without IV contrast of 01/12/2020 FINDINGS: No fracture or malalignment. There are multilevel facet degenerative changes in the visualized lower lumbar spine Soft tissues show aortic calcifications and pelvic phleboliths. Impression: No acute fracture or dislocation in the sacrum or coccyx is shown by plain film. . Electronically signed by: Juan Cotto MD (01/26/2020 1:50 PM) [facility] [place] & Med Decision Making: Course & Med Decision Making Pertinent Labs and Imaging studies reviewed. (See chart for details) Elderly frail patient presents status post fall today landing on her sacrum. Patient does report some sacral pain and discomfort. Patient noted to have a sacral decubitus ulcer. Family concerned for increased fatigue and generalized weakness. No focal deficit appreciated. Given age and risk factor decision for CT head and neck. CT imaging without acute finding. Chest x-ray stable. EKG stable. Labs obtained and posted to chart. X-ray of sacrum without fracture or dislocation. Discussed patient's generalized weakness. Decision that patient would be best served for admission with further evaluation and possible home health set up. Patient requiring admission for further evaluation and treatment. Discussed with Dr. Jeffries (hospitalist) who is in agreement with admission. Discussed findings and plan with patient, who acknowledges understanding and agreement. Iqra Disclaimer: Iqra Disclaimer: This electronic medical record was generated, in whole or in part, using a voice recognition dictation system. Departure Departure: Impression: Primary Impression: Generalized weakness Additional Impressions: Decubitus skin ulcer Qualified Codes: L89.159 - Pressure ulcer of sacral region, unspecified stage Sacral contusion Qualified Codes: S30.0XXA - Contusion of lower back and pelvis, initial encounter Fall Qualified Codes: W19.XXXA - Unspecified fall, initial encounter Disposition: ADMITTED INPT THIS HOSP Admitting Physician: Armen Jeffries Condition: STABLE Referrals: BURTON GUERRA MD (PCP) NIHSS - ED NIH Stroke Scale: NIH Stroke Scale Response (Comments) Value Level of Consciousness: 0 Alert/Responsive 0 LOC Questions: 0 Answers both correctly 0 LOC Commands: 0 Performs both tasks 0 Best Gaze: 0 Normal 0 Visual: 0 No visual loss 0 Facial Palsy: 0 Normal, symmetrical 0 Motor - Left Arm 0 No drift 0 Motor - Right Arm 0 No drift 0 Motor - Left Leg 0 No drift 0 Motor: Right Leg 0 No drift 0 Limb Ataxia: 0 Absent 0 Sensory: 0 No loss 0 Best Language: 0 Normal 0 Dysathria: 0 Normal 0 Extinction and Inattention: 0 Normal 0 Total 0 SCHWARTZ,ALEXANDER Gauthier DO Jan 26, 2020 12:47
[2020-01-26 13:19] LABS: BASO % 1 % (0-3); EOS % 1 % (0-3); HEMATOCRIT 35.9 % (36.0-47.0); HEMOGLOBIN 11.7 g/dL (12.0-15.5); LYMPH # 0.3 x10^3/uL (1.0-4.8); LYMPH % 4 % (24-48); MEAN CORPUSCULAR HEMOGLOBIN 29 pg (25-35); MEAN CORPUSCULAR HGB CONC 33 g/dL (31-37); MEAN CORPUSCULAR VOLUME 88 fL (79-100); MONO # 0.4 x10^3/uL (0.0-1.1); MONO % 5 % (0-9); NEUT # 6.4 x10^3uL (1.8-7.7); NEUT % 90 % (31-73); PLATELET COUNT 262 x10^3/uL (140-400); RED BLOOD COUNT 4.09 x10^6/uL (3.50-5.40); RED CELL DISTRIBUTION WIDTH 13.8 % (11.5-14.5); WHITE BLOOD COUNT 7.2 x10^3/uL (4.0-11.0)
[2020-01-26 13:32] LABS: CALCIUM 10.1 mg/dL (8.5-10.1); CREATININE 1.4 mg/dL (0.6-1.0); GFR 43.7; POTASSIUM 4.2 mmol/L (3.5-5.1)
--- NOTE | 2020-01-26 13:43 | EKG ---
[address] [address] Test Date: 2020-01-26 Test Time: 12:56:07 Pat Name: KASSANDRA ORDONEZ Department: Room: Gender: F Family Law Mediator: : 1940 Requested By: ALEXANDER SCHWARTZ Order Number: [id number] Reading MD: Measurements Intervals [place] Rate: 64 P: 59 [place]: 144 QRS: 38 QRSD: 118 T: 49 QT: 464 QTc: 478 Interpretive Statements SINUS RHYTHM LEFT ATRIAL ABNORMALITY R-S TRANSITION ZONE IN V LEADS DISPLACED TO THE RIGHT INCOMPLETE RIGHT BUNDLE BRANCH BLOCK PROLONGED QT ABNORMAL ECG RI6.02 No previous ECG available for comparison
[2020-01-26 13:46] LABS: ALBUMIN 3.1 g/dL (3.4-5.0); ALBUMIN/GLOBULIN RATIO 0.8 (1.0-1.7); MAGNESIUM 1.9 mg/dL (1.8-2.4); TOTAL BILIRUBIN 0.3 mg/dL (0.2-1.0); TOTAL PROTEIN 7.2 g/dL (6.4-8.2)
--- NOTE | 2020-01-26 13:53 | RAD ---
EXAM: CT Head without IV contrast INDICATION: Reason: pain s/p fall / Spl. Instructions: / History: TECHNIQUE: Multi-detector row CT images were obtained of the head without the use of IV contrast. All CT scans performed at this facility utilize dose optimization techniques as appropriate to the exam, including the following: Automated exposure control and adjustment of the mA and/or KV according to patient size (this includes techniques or standardized protocols for targeted exams where dose is indication/reason for exam). COMPARISON: None FINDINGS: BRAIN PARENCHYMA: No evidence of acute intraparenchymal hemorrhage or infarct. Mild generalized parenchymal volume loss and white matter low density compatible chronic ischemic microvascular change is present. VENTRICLES & EXTRA-AXIAL SPACES: Ventricles are within normal limits. Basilar cisterns are patent. No pathologic extra-axial fluid collection or mass. ORBITS: Orbital contents are unremarkable. SINUSES: Visualized paranasal sinuses and mastoid air cells are clear. OSSEOUS & SOFT TISSUES: Calvarium and skull base are intact. IMPRESSION: No acute intracranial pathology. EXAM: CT Cervical Spine without IV contrast INDICATION: Reason: pain s/p fall / Spl. Instructions: / History: TECHNIQUE: Multi-detector row CT images were obtained through the cervical spine without the use of IV contrast. Post-processing sagittal and coronal reconstructed images were obtained for interpretation. All CT scans performed at this facility utilize dose optimization techniques as appropriate to the exam, including the following: Automated exposure control and adjustment of the mA and/or KV according to patient size (this includes techniques or standardized protocols for targeted exams where dose is indication/reason for exam). COMPARISON: None FINDINGS: CRANIOCERVICAL JUNCTION: Unremarkable. ALIGNMENT: Alignment is within normal limits. OSSEOUS: No evidence of fracture or bone destruction. DISC SPACES: Multilevel disc degenerative change throughout the cervical spine. FACET JOINTS: Unremarkable. SPINAL CANAL: Mild to moderate diffuse central canal stenosis, most conspicuous at C3-C4 where combination of disc protrusion and ligamentum flavum thickening results in central canal narrowing to an AP diameter of 5 mm. NEUROFORAMINA: Unremarkable. SOFT TISSUES: Included lung apices show bilateral paraseptal pattern emphysematous change, and an enlarged, heterogeneous thyroid gland with multiple calcifications, exerting some mass effect on the trachea. IMPRESSION: Vascular chest taken 1. No acute traumatic findings in the cervical spine. 2. C-spine degenerative changes at the discs bilaterally with resultant moderate central canal stenosis diffusely, most conspicuously at C3-C4. EXAM: SACRUM COCCYX 3V, CHEST AP ONLY, CT HEAD AND CERVICAL SPINE WO INDICATION: Reason: pain s/p fall / Spl. Instructions: / History: . TECHNIQUE: Single view COMPARISON: None FINDINGS: The heart size is normal. The great vessels appear unremarkable. There is no hilar or mediastinal mass. The lungs are clear. There is no pleural effusion or pneumothorax. There are no significant osseous abnormalities. IMPRESSION: No active cardiopulmonary disease. Sacrum and coccyx 4 views INDICATION: Pain after fall. COMPARISON: Abdomen pelvis CT without IV contrast of 01/12/2020 FINDINGS: No fracture or malalignment. There are multilevel facet degenerative changes in the visualized lower lumbar spine Soft tissues show aortic calcifications and pelvic phleboliths. Impression: No acute fracture or dislocation in the sacrum or coccyx is shown by plain film. . Electronically signed by: Juan Cotto MD (01/26/2020 1:50 PM) [facility] [place]
[2020-01-26 16:03] LABS: BILIRUBIN,URINE NEG (NEG); CLARITY,URINE HAZY; COLOR,URINE YELLOW; GLUCOSE,URINE NEG (NEG)
[2020-01-26 16:04] LABS: BACTERIA,URINE MOD /HPF (0-FEW); NITRITE,URINE NEG (NEG); RBC,URINE 0 /HPF (0-2); SQUAMOUS EPITHELIAL CELL,UR FEW /LPF
[2020-01-26 17:29] VITALS: BP 131/61
[2020-01-26] MEDS ORDERED: SERT50TA PO (17:55)
[2020-01-26] MEDS ORDERED: GABA-585 PO (17:55)
[2020-01-26] MEDS ORDERED: CIPR500T94 PO (17:55)
[2020-01-26] MEDS ORDERED: PANT40TA6 PO (17:55)
[2020-01-26] MEDS ORDERED: ZOLPIDEM 5 MG TABLET. PO PRN (18:00)
[2020-01-26] MEDS: DICYCLOMINE HCL 20 MG TABLET PO SCH (20:08)
[2020-01-26] MEDS: GABAPENTIN 100 MG CAPSULE. PO SCH (20:08)
[2020-01-26] MEDS: PANTOPRAZOLE 40 MG TABLET. PO SCH (20:08)
[2020-01-26 20:30] VITALS: BP 135/51
[2020-01-26 22:43] VITALS: BP 143/69
[2020-01-27] MEDS ORDERED: VITS42.55 TP (01:11)
[2020-01-27] MEDS ORDERED: VITS A & D/LANOLIN TOPICAL OINTMENT 42GM TUBE. TP PRN (01:15)
[2020-01-27 05:06] VITALS: BP 167/69
[2020-01-27] MEDS: GABAPENTIN 100 MG CAPSULE. PO SCH ×3 (07:53→20:03)
[2020-01-27] MEDS: ASPIRIN ENTERIC COATED 81 MG TABLET.DR. PO SCH (07:53)
[2020-01-27] MEDS: SERTRALINE 50 MG TABLET. PO SCH (07:53)
[2020-01-27] MEDS: METOPROLOL SUCC 24HR ER 50 MG TAB.ER.24H. PO SCH (07:54)
[2020-01-27] MEDS: PANTOPRAZOLE 40 MG TABLET. PO SCH ×2 (07:54→20:03)
[2020-01-27] MEDS: DICYCLOMINE HCL 20 MG TABLET PO SCH ×3 (07:54→20:02)
[2020-01-27] MEDS ORDERED: FLU VACC QS 2020-21(6MOS+)/PF 0.5 ML SYRINGE. VAX IM ONE (09:00)
[2020-01-27 10:05] VITALS: BP 146/74
[2020-01-27] MEDS ORDERED: ONDANSETRON PF 4 MG/2 ML VIAL. IVP PRN (13:15)
[2020-01-27] MEDS: MORPHINE SULFATE 4 MG/ML DISP.SYRIN. IV PRN ×3 (13:22→21:48)
--- NOTE | 2020-01-27 13:31 | HP ---
ADMIT DATE: 01/26/2020 HISTORY OF PRESENT ILLNESS: The patient is an 79-year-old -[place] Citizen female patient who came to the Emergency Room complaining of altered mental status. The family stated that the patient has been acting differently. Denies any head trauma, loss of consciousness, dizziness or any other symptoms. Reported chair moved and was not able to stop her from falling. She apparently has also buttock pain after falling off a chair earlier today. She also has been dealing with a sacral ulcer, which has been bothering her for a few weeks. Family is concerned that the patient does not seem to be more fatigued and weak than normal. Denies any fever or chills. Denied any chest pain or dizziness. Denied any dysuria, frequency or hematuria. She was extensively investigated. Had an EKG, which showed that she was in sinus rhythm with heart rate was [address] scan of the head was unremarkable. CT scan of the cervical spine also was unremarkable. Has had lab work done, which was also unremarkable. The patient was admitted for further evaluation and generalized weakness with decubitus skin ulcer and sacral contusion, recurrent falls and weakness. She was continued on all her medications. PAST MEDICAL HISTORY: Significant for hypertension, multiple TIAs, hypothyroidism and probably chronic obstructive pulmonary disease. PAST SURGICAL HISTORY: Significant for thyroidectomy, total abdominal hysterectomy, bilateral salpingo-oophorectomy. She has bilateral cataract extraction, tonsillectomy, appendectomy. She underwent esophagogastroduodenoscopy. ALLERGIES: SHE HAS MULTIPLE ALLERGIES INCLUDING IODINE, IODINE CONTAINING PRODUCTS, PENICILLIN, AZITHROMYCIN, LISINOPRIL, MEPERIDINE, METOCLOPRAMIDE AND NITROFURANTOIN. FAMILY HISTORY: She has one sister who is younger and probably of suicide. Both parents are . She does not know her father very well. Her mother in her 60s. SOCIAL HISTORY: She is , has 2 miscarriages and 5 living children, all healthy. She smokes 5 cigarettes per day, does not drink alcohol or use recreational drugs. MEDICATIONS: She is currently on following medications: She is on ciprofloxacin 500 mg twice a day, dicyclomine 20 mg once a day, metoprolol succinate 50 mg daily, aspirin 81 mg once a day, gabapentin 100 mg 3 times a day, sertraline 50 mg daily, Ambien 5 mg at bedtime, Protonix 40 mg twice a day and vitamin A and D ointment applied topically every 2 hours for skin breakdown. PHYSICAL EXAMINATION: GENERAL: On arrival to the Emergency Room, the patient looked somewhat pale, but no jaundice, cyanosis or thyromegaly. No jugular venous distention. No lower limb edema. VITAL SIGNS: Her heart rate was 66, blood pressure was 138/57, temperature was 97.1, respiratory rate was 16, and oxygen saturation was 97% on room air. HEAD, EYES, EARS, NOSE AND THROAT: Showed normocephalic, atraumatic. NECK: Supple. HEART: Showed normal first and second heart sounds. No gallop, rub or murmur. CHEST: Clear to auscultation. No crepitation or rhonchi. ABDOMEN: Soft and nontender. PELVIC: Stable, nontender. NEUROLOGIC: Alert, oriented x3 with normal motor and sensory function. Psychologically, the affect and judgment are normal. EXTREMITIES: Showed no clubbing, cyanosis or edema. Her EKG showed that she was in sinus rhythm with heart rate of 64 beats per minute, no ST segment elevations, T-wave changes. Her CT scan of the head was unremarkable and showed no acute cranial pathology. IMAGING: CT scan of the cervical spine showed the patient has no acute traumatic finding in the cervical spine. C-spine, degenerative changes at the discs bilaterally with resultant moderate central canal stenosis diffusely, most conspicuous at C3-C4. Her chest x-ray showed no active cardiopulmonary disease. X-ray of the sacrum and coccyx showed there is no acute fracture or dislocation of the sacrum and coccyx as shown by plain films. LABORATORY AND DIAGNOSTIC DATA: Her lab work showed her white cell count was 7200, hemoglobin 11.7, hematocrit 35.9, MCV 88 and platelet count of 262,000 with a manual differential showed 90% polymorphs, 4% lymphocytes. Her prothrombin time, INR and aPTT normal. Her chemistry showed serum sodium 135, potassium 4.2, chloride 97, bicarbonate 25, anion gap of 13, BUN 13, creatinine 1.4, estimated GFR was 43 mL per minute. Her glucose was 91, lactic acid was 1.9, calcium was 10.1, magnesium was 1.9. Total bilirubin, AST, ALT, alkaline phosphatase were normal. Total protein was 7.2, albumin was 3.1. Her urinalysis showed the urine was yellow, hazy with a pH of 5.5, specific gravity 1.030, small amount of protein, negative for glucose. The urine was positive for ketones, trace of blood, negative for nitrite and leukocyte esterase. There are no rbc's, 5-10 wbc's, moderate amount of bacteria. ASSESSMENT AND PLAN: The patient was admitted for generalized weakness, decubitus skin ulcer, sacral contusion, fall. The patient will be seen by the physical and occupational therapy and also the wound care team and obviously will speak with our medical social worker that she might require placement in a nursing home facility or at least a rehab center. JOSE A GUZMÁN MD DR: SUDHEER/sonia JOB#: [id number] / [id number]
[2020-01-27 13:38] LABS: HEMATOCRIT 33.8 % (36.0-47.0); RED BLOOD COUNT 3.89 x10^6/uL (3.50-5.40); RED CELL DISTRIBUTION WIDTH 13.9 % (11.5-14.5); WHITE BLOOD COUNT 6.3 x10^3/uL (4.0-11.0)
[2020-01-27] MEDS: IV DEXTROSE 5 %-0.45 % NACL 1,000 ML IV SCH (13:54)
[2020-01-27 14:26] VITALS: BP 153/68
[2020-01-27 14:30] LABS: CALCIUM 9.5 mg/dL (8.5-10.1); CREATININE 1.4 mg/dL (0.6-1.0); GFR 43.7; POTASSIUM 3.8 mmol/L (3.5-5.1)
[2020-01-27 14:37] LABS: ALBUMIN 3.1 g/dL (3.4-5.0); ALBUMIN/GLOBULIN RATIO 0.8 (1.0-1.7); TOTAL BILIRUBIN 0.2 mg/dL (0.2-1.0)
--- NOTE | 2020-01-27 15:12 | RAD ---
Examination: CT of the abdomen pelvis without contrast HISTORY: History of worsening abdominal pain, diverticulitis COMPARISON: None available TECHNIQUE: Axial CT images of the abdomen pelvis were performed without contrast. Coronal and sagittal reformats are performed Exposure: One or more of the following individualized dose reduction techniques were utilized for this examination: 1. Automated exposure control 2. Adjustment of the mA and/or kV according to patient size 3. Use of iterative reconstruction technique FINDINGS: Mild bibasilar lung atelectasis. No evidence of free air identified in the abdomen. The evaluation of the solid organs is limited due to lack of IV contrast. The evaluation of bowel is limited due to lack of oral contrast. Examination limited due to motion artifact. The visualized noncontrasted liver, spleen, adrenals grossly appears unremarkable. The stomach is mildly distended. There is mild thickened appearance of the wall of the distal stomach with mild fat stranding in the distal aspect of the stomach and first portion of the duodenum seen best on series 2 image 63. Small lymph nodes identified just inferior to the stomach similar to prior exam with the largest measuring 2 cm. The small bowel is nondilated. Feces and gas noted in the colon. Sigmoid colon diverticulosis. Urinary bladder is mildly distended. No evidence of intrarenal collecting system calculi or hydronephrosis. Severe aortic atherosclerosis. Moderate degenerative changes thoracolumbar spine. IMPRESSION: 1. Mild thickened appearance of the wall of the distal stomach or first portion of the duodenum with lymph nodes inferior to the stomach. Differential includes gastroduodenitis with reactive lymphadenopathy or malignancy. 2. Sigmoid colon diverticulosis. Electronically signed by: Giuseppe Hays MD (01/27/2020 3:09 PM) [id number]
[2020-01-27 18:46] VITALS: BP 120/49
--- NOTE | 2020-01-27 21:04 | PN ---
DATE: 01/27/2020 SUBJECTIVE: The patient is sitting in her chair, complaining of severe abdominal pain. She did have a bowel movement yesterday. She apparently was seen in the Emergency Room recently, specifically on 01/12/2020 and was diagnosed with diverticulitis. PHYSICAL EXAMINATION: GENERAL: When I examined her this afternoon, she was pale, but no jaundice, cyanosis or thyromegaly. No jugular venous distention. No lower limb edema. VITAL SIGNS: Her heart rate was 58, blood pressure was 146/74, temperature 98.3, respiratory rate was 20, and oxygen saturation was 95% on room air. HEAD, EYES, EARS, NOSE AND THROAT: Showed normocephalic, atraumatic. NECK: Supple. HEART: Showed normal first and second heart sounds. No gallop or murmur. CHEST: Clear to auscultation. No crepitation or rhonchi. ABDOMEN: Mildly distended, diffusely tender. There is no guarding or rigidity. No rebound tenderness. Bowel sounds are sluggish. NEUROLOGIC: She is awake, alert, responding appropriately. All cranial nerves intact. She moves extremities without difficulty. LABORATORY DATA: Her lab works are still pending at the time of this dictation. PLAN: My plan is to keep her n.p.o., start her on IV fluid in the form of D5 half normal at 75 mL per hour. We will do a CT scan of the abdomen and pelvis without contrast. We will repeat her CBC, CMP and serum lipase. I did start her also on morphine 4 mg IV every 4 hours and Zofran 4 mg every 4 hours. Once we have the lab results, we will decide on further management as she might eventually require transfer to [facility] if she has a surgical abdomen. JOSE A GUZMÁN MD DR: SUDHEER/sonia JOB#: [id number] / [id number]
[2020-01-27 23:16] VITALS: BP 120/62
[2020-01-28] MEDS: MORPHINE SULFATE 4 MG/ML DISP.SYRIN. IV PRN ×2 (02:19→11:57)
[2020-01-28] MEDS: IV DEXTROSE 5 %-0.45 % NACL 1,000 ML IV SCH ×2 (03:29→17:48)
[2020-01-28 06:29] VITALS: BP 116/56
[2020-01-28 08:34] LABS: HEMATOCRIT 32.2 % (36.0-47.0); HEMOGLOBIN 10.6 g/dL (12.0-15.5); RED BLOOD COUNT 3.7 x10^6/uL (3.50-5.40); WHITE BLOOD COUNT 5.6 x10^3/uL (4.0-11.0)
[2020-01-28 08:44] LABS: ALBUMIN 2.9 g/dL (3.4-5.0); ALBUMIN/GLOBULIN RATIO 0.8 (1.0-1.7); CALCIUM 8.8 mg/dL (8.5-10.1); CREATININE 1.4 mg/dL (0.6-1.0); GFR 43.7; POTASSIUM 3.9 mmol/L (3.5-5.1); TOTAL BILIRUBIN 0.1 mg/dL (0.2-1.0); TOTAL PROTEIN 6.7 g/dL (6.4-8.2)
[2020-01-28] MEDS: ASPIRIN ENTERIC COATED 81 MG TABLET.DR. PO SCH (08:46)
[2020-01-28] MEDS: PANTOPRAZOLE 40 MG TABLET. PO SCH (08:46)
[2020-01-28] MEDS: GABAPENTIN 100 MG CAPSULE. PO SCH ×2 (08:46→13:47)
[2020-01-28] MEDS: DICYCLOMINE HCL 20 MG TABLET PO SCH ×2 (08:46→13:47)
[2020-01-28] MEDS: SERTRALINE 50 MG TABLET. PO SCH (08:46)
[2020-01-28] MEDS: METOPROLOL SUCC 24HR ER 50 MG TAB.ER.24H. PO SCH (08:47)
[2020-01-28 11:27] VITALS: BP 116/61
[2020-01-28 15:22] VITALS: BP 94/55
[2020-01-28 17:10] VITALS: BP 103/60
--- NOTE | 2020-01-28 18:55 | PN ---
DATE: 01/28/2020 SUBJECTIVE: The patient continued to be complaining of abdominal pain, mostly in the right upper and right lower quadrant. Denied any nausea or vomiting. She did have a bowel movement and passed gas according to her. PHYSICAL EXAMINATION: GENERAL: When I examined her this morning, she looked well and was clearly in no apparent respiratory distress. She was pale, but no jaundice, cyanosis or thyromegaly. No jugular venous distention. No limb edema. VITAL SIGNS: Her heart rate was 55, blood pressure 116/61, temperature was 97.9, respiratory rate 20, and oxygen saturation was 94% on room air. HEAD, EYES, EARS, NOSE AND THROAT: Normocephalic, atraumatic. NECK: Supple. HEART: Showed normal first and second heart sounds. No gallop, rub or murmur. CHEST: Clear to auscultation. No crepitation or rhonchi. ABDOMEN: Distended. Tenderness mostly in the right lower quadrant and right flank area; however, there is no guarding or rigidity. No organomegaly. All hernial orifice intact. Bowel sounds normal. NEUROLOGIC: She is awake, alert, responding appropriately. All cranial nerves intact. She moves extremities without difficulty. She ambulates without assistance or assistive devices. Her intake over the last 24 hours was 614, no output was recorded. LABORATORY DATA: Her lab work this morning showed her white cell count to be 5600, hemoglobin 11, hematocrit 32, MCV 87, and platelet count 250,000. Her serum sodium was 134, potassium 3.9, chloride 99, bicarbonate 26, anion gap of 9, BUN 12, creatinine 1.4, estimated GFR was 44 mL per minute. Her glucose was 121, calcium was 8.8. Total bilirubin, AST, ALT, alkaline phosphatase were normal. Total protein 6.7, albumin 2.9. Serum lipase was 63. Her CT scan of the abdomen and pelvis as of yesterday showed the patient has mild thickened appearance of the wall of the distal stomach or first portion of the duodenum with lymph nodes inferior to the stomach. Differential include gastroduodenitis, reactive lymphadenopathy or malignancy. She also has sigmoid diverticulosis. There is no evidence of intrarenal collecting system calculi or hydronephrosis and small bowel is nondilated. Feces and gas noted in the colon, sigmoid colon diverticulosis. PLAN: My plan is to continue obviously with IV fluid, continue with pain management. The patient will definitely need probably an upper GI endoscopy to exclude the possibility of malignancy as she is not demonstrating any evidence of gastroenteritis. I did add LDH to make sure there is no evidence of bowel ischemia. I will repeat all her labs again tomorrow and hopefully arrange for that at [facility] to consult Gastroenterology team. JOSE A GUZMÁN MD DR: SUDHEER/sonia JOB#: [id number] / [id number]
== END 2020-01-28 19:00 | disposition short-term general hospital (02) | DRG 391 ==
LOC: ER 12:14 → 1 SOUTH 14:56
PROVIDERS: ADMIT Internal Medicine; ATTEND Internal Medicine
DX: K57.30 Diverticulosis of large intestine without perforation or abscess without bleeding (principal); G93.41 Metabolic encephalopathy; S30.0XXA Contusion of lower back and pelvis, initial encounter; F17.210 Nicotine dependence, cigarettes, uncomplicated; C80.1 Malignant (primary) neoplasm, unspecified; L89.152 Pressure ulcer of sacral region, stage 2; E89.0 Postprocedural hypothyroidism; I10 Essential (primary) hypertension; J44.9 Chronic obstructive pulmonary disease, unspecified; M48.02 Spinal stenosis, cervical region; R29.6 Repeated falls; Z86.73 Personal history of transient ischemic attack (TIA), and cerebral infarction without residual deficits; Z90.49 Acquired absence of other specified parts of digestive tract; Z90.710 Acquired absence of both cervix and uterus; W18.39XA Other fall on same level, initial encounter; Z98.41 Cataract extraction status, right eye; Z98.42 Cataract extraction status, left eye; Z90.722 Acquired absence of ovaries, bilateral; Y93.89 Activity, other specified; Y92.89 Other specified places as the place of occurrence of the external cause; Y99.8 Other external cause status
CPT/HCPCS: 36415; 70450; 71045; 72125; 72220; 74176; 80053; 81001; 82553; 83605; 83615; 83690; 83735; 84484; 85025; 85027; 85610; 85730; 87086; 90471; 90686; 93005; J2270; J2405; 97530; 99285-25